=== PATIENT | female | born 1955 | race Two or more races ===

== ENCOUNTER 2023-02-22 12:12 | Observation (INO) | payer OTHER, BC ==
[2023-02-22] MEDS ORDERED: CEFEPIME 2 GM VIAL ONE (12:37)
[2023-02-22] MEDS ORDERED: NA CHLORIDE 0.9% 100 ML ONE (12:37)
[2023-02-22] MEDS ORDERED: NA CHLORIDE 0.9% 1,000 ML ONE ×2 (12:37→15:19)
[2023-02-22 12:49] LABS: Absolute Lymphocytes (CBC) 2.3 K/uL (0.7-4.9); Hematocrit 36.1 % (36.0-45.0); Lymphocytes % 34.8 % (15.3-44.8); MCV 92.9 fL (80-100); MPV 7.1 fL (7.6-11.3); RBC Red Blood Cell Count 3.89 M/uL (3.86-4.86)
[2023-02-22 12:55] LABS: Protime INR 0.87
[2023-02-22 13:09] LABS: Albumin 3.2 g/dL (3.4-5.0); Bilirubin Total 0.2 mg/dL (0.2-1.0); Magnesium 2.2 mg/dL (1.6-2.4); Potassium 3.1 mEq/L (3.5-5.1); Protein, Total 6.5 g/dL (6.4-8.2); Troponin High Sensitivity 8.5 pg/mL (<58.9)
--- NOTE | 2023-02-22 13:43 | RAD REPORT ---
EXAM DESCRIPTION: RAD - Chest Single View - 02/22/2023 1:30 pm CLINICAL HISTORY: hypotension COMPARISON: No comparisons FINDINGS: Lines: None. Lungs: No evidence of edema or pneumonia. Pleural: No significant pleural effusions or pneumothorax. Cardiac: Mild cardiomegaly. Mediastinum: Within normal limits. Bones: No acute fractures. Other: None IMPRESSION: No acute cardiopulmonary disease.
--- NOTE | 2023-02-22 14:28 | RAD REPORT ---
EXAM DESCRIPTION: CTAbdomen Pelvis W Contrast - 02/22/2023 2:02 pm CLINICAL HISTORY: vomiting COMPARISON: No comparisons TECHNIQUE: CT of the abdomen and pelvis was performed. All CT scans are performed using dose optimization technique as appropriate and may include automated exposure control or mA/KV adjustment according to patient size. FINDINGS: Lower chest: Mild coronary artery calcifications . Liver: Hepatic steatosis. Low-density lesion left hepatic lobe is likely benign. Biliary: No biliary ductal dilatation. Stomach: No significant focal abnormality. Duodenum: No significant focal abnormality. Pancreas: No significant abnormality. Spleen: No significant abnormality. Adrenal: No suspicious lesions. Kidney/ureter: No hydronephrosis. No renal calculi. Too small to characterize and/or benign appearing renal lesions are noted. Retroperitoneum: No retroperitoneal adenopathy. Vascular: No aneurysm. Atherosclerosis . Bowel: No significant focal abnormality. Peritoneum: No ascites or free air. Bladder: Grossly unremarkable. Reproductive: No adnexal masses. Bones: No acute fracture. L4-5 fusion Other: n/a IMPRESSION: No acute intra-abdominal or pelvic finding. Incidental findings above.
[2023-02-22] MEDS ORDERED: KCL 20 MEQ/100 mL IVPB 200 ML IV ONE (14:35)
--- NOTE | 2023-02-22 15:39 | ER ---
Nurse's Notes [facility] Name: Cade Perez Age: 67 yrs Sex: Female : 1955 Arrival Date: 02/22/2023 Time: 12:12 Bed 6 Private MD: Diagnosis: Hypotension, unspecified;Lactic acidosis Presentation: 02/22 12:20 Chief complaint: EMS states: they were called out for blurry vision. upon EMS arrival ap3 the patients blood pressure was 60/29. Coronavirus screen: At this time, the client does not indicate any symptoms associated with coronavirus-19. Ebola Screen: No symptoms or risks identified at this time. Initial Sepsis Screen: Does the patient meet any 2 criteria? Systolic BP < 90 mmHg. Mean Arterial Pressure (MAP) < 65. Does the patient have a suspected source of infection? No. Patient's initial sepsis screen is negative. Risk Assessment: Do you want to hurt yourself or someone else? Patient reports no desire to harm self or others. Onset of symptoms was February 22, 2023. 12:20 Method Of Arrival: EMS: [facility] ap3 12:20 Acuity: BRET 2 ap3 12:23 Care prior to arrival: Medication(s) given: Normal saline infusion, 1000 mL, IV ap3 initiated. 20 GA, in the left antecubital area. Historical: - Allergies: 12:21 No Known Allergies; ap3 - Home Meds: 12:21 losartan 100 mg oral tablet [Active]; atorvastatin 20 mg oral tablet [Active]; ap3 omeprazole 40 mg Oral capsule,delayed release (e.c.) [Active]; simvastatin 20 mg Oral tablet [Active]; - PMHx: 12:21 Hypertensive disorder; ap3 - Immunization history:: Client reports receiving the 2nd dose of the Covid vaccine. - Social history:: Smoking status: Patient denies any tobacco usage or history of. - Family history:: not pertinent. Screenin:23 Abuse screen: Denies threats or abuse. Nutritional screening: No deficits noted. ap3 Tuberculosis screening: No symptoms or risk factors identified. Assessment: 12:22 General: Appears in no apparent distress. Behavior is calm, cooperative. Pain: Denies ap3 pain. Neuro: Level of Consciousness is awake, alert, obeys commands, Oriented to person, place, time, situation, Speech is normal. Neuro: Reports blurred vision. Cardiovascular: Patient's skin is warm and dry. Respiratory: Airway is patent Respiratory effort is even, unlabored, Respiratory pattern is regular, symmetrical. 15:30 General: nurse attempted to place purewick on patient. patient was unable to urinate ap3 laying in the bed. patient sat up in bed and urinated in brief. . 16:28 Reassessment: Patient and/or family updated on plan of care and expected duration. Pain ap3 level reassessed. Patient is alert, oriented x 3, equal unlabored respirations, skin warm/dry/pink. Patient states feeling better. Patient states symptoms have improved. 16:29 General: patient was able to successfully wean from oxygen. patient is now 99% SPO2 on ap3 room air. 17:01 Reassessment: patient reports to admitting physician she wants to leave against medical ap3 advice. admitting physician educated patient on importance of staying. 17:04 Reassessment: Patient is alert, oriented x 3, equal unlabored respirations, skin aa5 warm/dry/pink. Wet brief noted, applied clean brief. . 19:02 Reassessment: report given to Radha RN and Jose RN. lg3 19:08 Reassessment:. General: Appears in no apparent distress. comfortable, Behavior is calm, lg3 cooperative. Pain: Denies pain. Neuro: No deficits noted. Hale Agitation-Sedation Scale (RASS): 0 - Alert and Calm Level of Consciousness is awake, alert, obeys commands, Oriented to person, place, time, situation. Cardiovascular: No deficits noted. Denies chest pain, shortness of breath, Capillary refill < 3 seconds Clubbing of nail beds is absent JVD is absent Patient's skin is warm and dry. Respiratory: No deficits noted. Airway is patent Respiratory effort is even, unlabored, Respiratory pattern is regular, symmetrical. GI: No deficits noted. No signs and/or symptoms were reported involving the gastrointestinal system. : No deficits noted. No signs and/or symptoms were reported regarding the genitourinary system. EENT: No deficits noted. No signs and/or symptoms were reported regarding the EENT system. Derm: No deficits noted. No signs and/or symptoms reported regarding the dermatologic system. Skin is intact, is healthy with good turgor, Skin is dry, Skin is normal, Skin temperature is warm. Musculoskeletal: No deficits noted. No signs and/or symptoms reported regarding the musculoskeletal system. Circulation, motion, and sensation intact. Range of motion: intact in all extremities. 19:31 General: pt states she is feeling much better and will be leaving. Provider notified . lg3 Vital Signs: 12:20 BP 74 / 48; Pulse 60; Resp 19; Temp 97.5; Pulse Ox 88% on R/A; Weight 68.5 kg; ap3 12:22 BP 82 / 58; Pulse 64; Pulse Ox 91% on 3 lpm NC; ap3 12:54 BP 91 / 59; Pulse 66; Resp 19; Pulse Ox 95% on 3 lpm NC; ap3 13:28 BP 94 / 59; Pulse 69; Pulse Ox 92% on 3 lpm NC; ap3 13:45 BP 94 / 67; Pulse 72; Pulse Ox 96% on 3 lpm NC; ap3 15:18 BP 109 / 78; Pulse 102; Pulse Ox 98% on 3 lpm NC; ap3 16:28 BP 99 / 66; Pulse 82; Pulse Ox 99% on R/A; ap3 17:43 BP 132 / 68; Pulse 80; Pulse Ox 98% on R/A; ap3 19:31 BP 139 / 88; Pulse 78; Resp 17 S; Pulse Ox 99% on R/A; lg3 ED Course: 12:16 Patient arrived in ED. iw 12:16 Compa Hernandes MD is Attending Physician. rt 12:18 First set of blood cultures drawn. ap3 12:19 Michelle Grullon, RN is Primary Nurse. ap3 12:21 Triage completed. ap3 12:24 Arm band placed on right wrist. ap3 12:24 Patient has correct armband on for positive identification. Bed in low position. Call ap3 light in reach. Side rails up X2. cafeteria monitor on. Pulse ox on. NIBP on. 12:43 EKG done, by ED staff, reviewed by Compa Hernandes MD. aa5 12:45 Inserted saline lock: 22 gauge in right antecubital area, using aseptic technique. ap3 Blood collected. 12:52 Second set of blood cultures drawn by ct. ap3 12:53 Michelle Grullon, RN is Primary Nurse. ap3 13:32 Chest Single View XRAY In Process Unspecified. EDMS 14:04 CT Abd/Pelvis - IV Contrast Only In Process Unspecified. EDMS 15:37 Poonam Collins MD is Hospitalizing Provider. rt 16:00 Admitting physician to see patient. ap3 19:00 Report received from Michelle Coelho RN. lg3 19:33 No provider procedures requiring assistance completed. IV discontinued, intact, lg3 bleeding controlled, No redness/swelling at site. Pressure dressing applied. Administered Medications: 12:55 Drug: NS 0.9% IV (30 ml/kg) 30 ml/kg Route: IV; Rate: bolus; Site: right antecubital; ap3 16:27 Follow up: IV Status: Completed infusion ap3 12:55 Drug: Cefepime IVPB 2 grams Route: IVPB; Rate: 200 ml/hr; Infused Over: 30 mins; Site: ap3 right antecubital; 13:27 Follow up: IV Status: Completed infusion ap3 14:36 Drug: Potassium Chloride IV 40 mEq Route: IV; Rate: calculated rate; Site: right ap3 antecubital; Medication: 12:54 VIS not applicable for this client. ap3 Outcome: 15:38 Decision to Hospitalize by Provider. rt 19:33 AMA AMA form signed lg3 19:33 Condition: stable 19:34 Patient left the ED. lg3 Signatures: Dispatcher [employer] EDCorrina Huff RN RN iw Calderon, Audri, RN RN aa5 Michelle Grullon RN RN ap3 Radha Culp RN RN lg3 Compa Hernandes MD MD rt Corrections: (The following items were deleted from the chart) 19:31 19:13 Reassessment: report given to CHERRY Garcia and CHERRY Garcia ap3 lg3
--- NOTE | 2023-02-22 15:39 | EDPHYS ---
Physician Documentation [facility] Name: Cade Perez Age: 67 yrs Sex: Female : 1955 Arrival Date: 02/22/2023 Time: 12:12 Bed 6 Private MD: ED Physician Compa Hernandes HPI: 02/22 13:06 This 67 yrs old [place] Female presents to ER via EMS with complaints of Blood rt Pressure Problem. 13:06 Patient presents to the ED with blurred vision, near syncope, nausea with vomiting as rt well as hypotension. Patient was well last night. Blood pressure was 60/30 by EMS. They started IV fluids with improvement of symptoms. Patient states that her symptoms have resolved despite still being hypotensive. Denies other acute complaints at this time, symptoms are severe in severity, no other aggravating or alleviating factors.. Historical: - Allergies: 12:21 No Known Allergies; ap3 - Home Meds: 12:21 losartan 100 mg oral tablet [Active]; atorvastatin 20 mg oral tablet [Active]; ap3 omeprazole 40 mg Oral capsule,delayed release (e.c.) [Active]; simvastatin 20 mg Oral tablet [Active]; - PMHx: 12:21 Hypertensive disorder; ap3 - Immunization history:: Client reports receiving the 2nd dose of the Covid vaccine. - Social history:: Smoking status: Patient denies any tobacco usage or history of. - Family history:: not pertinent. ROS: 13:06 Constitutional: Negative for fever, chills, and weight loss, Cardiovascular: Negative rt for chest pain, palpitations, and edema, Respiratory: Negative for shortness of breath, cough, wheezing, and pleuritic chest pain, MS/Extremity: Negative for injury and deformity, Skin: Negative for injury, rash, and discoloration, Psych: Negative for depression, anxiety, suicide ideation, homicidal ideation, and hallucinations. 13:06 Eyes: Positive for blurry vision, Negative for pain. 13:06 Abdomen/GI: Positive for nausea and vomiting, Negative for abdominal pain. 13:06 Neuro: Positive for near syncope, weakness. Exam: 13:06 Constitutional: This is a well developed, well nourished patient who is awake, alert, rt and in no acute distress. Head/Face: Normocephalic, atraumatic. Chest/axilla: Normal chest wall appearance and motion. Nontender with no deformity. No lesions are appreciated. Cardiovascular: Regular rate and rhythm with a normal S1 and S2. No gallops, murmurs, or rubs. Normal PMI, no JVD. No pulse deficits. Respiratory: Lungs have equal breath sounds bilaterally, clear to auscultation and percussion. No rales, rhonchi or wheezes noted. No increased work of breathing, no retractions or nasal flaring. Abdomen/GI: Soft, non-tender, with normal bowel sounds. No distension or tympany. No guarding or rebound. No evidence of tenderness throughout. Skin: Warm, dry with normal turgor. Normal color with no rashes, no lesions, and no evidence of cellulitis. MS/ Extremity: Pulses equal, no cyanosis. Neurovascular intact. Full, normal range of motion. Neuro: Awake and alert, GCS 15, oriented to person, place, time, and situation. Cranial nerves II-XII grossly intact. Motor strength 5/5 in all extremities. Sensory grossly intact. Cerebellar exam normal. Normal gait. Psych: Awake, alert, with orientation to person, place and time. Behavior, mood, and affect are within normal limits. 13:06 ECG was reviewed by the Attending Physician. Vital Signs: 12:20 BP 74 / 48; Pulse 60; Resp 19; Temp 97.5; Pulse Ox 88% on R/A; Weight 68.5 kg; ap3 12:22 BP 82 / 58; Pulse 64; Pulse Ox 91% on 3 lpm NC; ap3 12:54 BP 91 / 59; Pulse 66; Resp 19; Pulse Ox 95% on 3 lpm NC; ap3 13:28 BP 94 / 59; Pulse 69; Pulse Ox 92% on 3 lpm NC; ap3 13:45 BP 94 / 67; Pulse 72; Pulse Ox 96% on 3 lpm NC; ap3 15:18 BP 109 / 78; Pulse 102; Pulse Ox 98% on 3 lpm NC; ap3 16:28 BP 99 / 66; Pulse 82; Pulse Ox 99% on R/A; ap3 17:43 BP 132 / 68; Pulse 80; Pulse Ox 98% on R/A; ap3 19:31 BP 139 / 88; Pulse 78; Resp 17 S; Pulse Ox 99% on R/A; lg3 MDM: 12:19 Patient medically screened. rt 17:14 Differential Diagnosis Sepsis, hypotension, volume depletion, cardiogenic shock. Data rt reviewed: vital signs, nurses notes, lab test result(s), EKG, radiologic studies. Consideration of Admission/Observation Patient was admitted/placed on observation. Management of patient was discussed with the following: Hospitalist: Agrees to admit. I considered the following discharge prescriptions or medication management in the emergency department Medications were administered in the Emergency Department. See MAR. Care significantly affected by the following chronic conditions: Hypertension. Counseling: I had a detailed discussion with the patient and/or guardian regarding: the historical points, exam findings, and any diagnostic results supporting the discharge/admit diagnosis, lab results, radiology results, the need for further work-up and treatment in the hospital. Response to treatment: the patient's symptoms have markedly improved after treatment. 02/22 12:23 Order name: Blood Culture Adult (2) rt 02/22 12:23 Order name: CBC with Diff; Complete Time: 13:05 rt 02/22 12:23 Order name: CMP; Complete Time: 13:22 rt 02/22 12:23 Order name: Lactate w/ 2H reflex if indic.; Complete Time: 13:22 rt 02/22 12:23 Order name: Protime (+inr); Complete Time: 13:05 rt 02/22 12:23 Order name: Ptt, Activated; Complete Time: 13:05 rt 02/22 12:23 Order name: Urinalysis w/ reflexes rt 02/22 12:23 Order name: Magnesium; Complete Time: 13:22 rt 02/22 12:23 Order name: NT PRO-BNP; Complete Time: 13:22 rt 02/22 12:23 Order name: Troponin HS; Complete Time: 13:22 rt 02/22 18:19 Order name: CBC with Automated Diff EDMS 02/22 18:19 Order name: CBC with Automated Diff EDMS 02/22 18:19 Order name: Comprehensive Metabolic Panel EDMS 02/22 18:19 Order name: Comprehensive Metabolic Panel EDMN 02/22 18:20 Order name: Cortisol EDMS 02/22 18:20 Order name: Lactate w/ 2H reflex if indic. EDMS 02/22 18:20 Order name: Lipid Profile EDMN 02/22 18:20 Order name: Magnesium EDMS 02/22 18:20 Order name: Procalcitonin [facility] 02/22 18:20 Order name: T4 Free [facility] 02/22 18:20 Order name: Thyroid Stimulating Hormone [facility] 02/22 19:24 Order name: Lactate Sepsis 2 HR Follow-up [facility] 02/22 12:23 Order name: Chest Single View XRAY; Complete Time: 13:52 rt 02/22 12:23 Order name: CT Abd/Pelvis - IV Contrast Only; Complete Time: 14:33 rt 02/22 12:23 Order name: EKG; Complete Time: 12:23 rt 02/22 18:19 Order name: Regular [facility] 02/22 12:23 Order name: Accucheck; Complete Time: 12:55 rt 02/22 12:23 Order name: Cardiac monitoring; Complete Time: 12:24 rt 02/22 12:23 Order name: EKG - Nurse/Tech; Complete Time: 12:45 rt 02/22 12:23 Order name: IV Saline Lock - Large Bore; Complete Time: 12:24 rt 02/22 12:23 Order name: Labs collected and sent; Complete Time: 12:45 rt 02/22 12:23 Order name: O2 Per Protocol; Complete Time: 12:24 rt 02/22 12:23 Order name: O2 Sat Monitoring; Complete Time: 12:24 rt 02/22 12:23 Order name: Vital Signs; Complete Time: 12:24 rt 02/22 12:23 Order name: IV Saline Lock; Complete Time: 12:24 rt EC:06 Rate is 68 beats/min. Rhythm is regular, Normal Sinus Rhythm with No ectopy. QRS Superior rt is Normal. TN interval is normal. QRS interval is normal. QT interval is normal. No Q waves. Clinical impression: NSR w/ Non-specific ST/T Changes. Interpreted by me. Administered Medications: 12:55 Drug: NS 0.9% IV (30 ml/kg) 30 ml/kg Route: IV; Rate: bolus; Site: right antecubital; ap3 16:27 Follow up: IV Status: Completed infusion ap3 12:55 Drug: Cefepime IVPB 2 grams Route: IVPB; Rate: 200 ml/hr; Infused Over: 30 mins; Site: ap3 right antecubital; 13:27 Follow up: IV Status: Completed infusion ap3 14:36 Drug: Potassium Chloride IV 40 mEq Route: IV; Rate: calculated rate; Site: right ap3 antecubital; Disposition Summary: 02/22/23 15:38 Hospitalization Ordered Hospitalization Status: Observation rt Provider: Poonam Collins rt Location: Telemetry/MedSurg (observation) rt Condition: Fair rt Problem: new rt Symptoms: have improved rt Bed/Room Type: Standard rt Room Assignment: rt Diagnosis - Hypotension, unspecified rt - Lactic acidosis rt Forms: - Medication Reconciliation Form rt - SBAR form rt Critical care time excluding procedures: 17:14 Critical care time: Bedside Care: 30 minutes, Consultation: 5 minutes. Total time: 35 rt minutes Signatures: Dispatcher [employer] Michelle Acosta RN RN ap3 Compa Hernandse MD MD rt
[2023-02-22] MEDS ORDERED: ACETAMINOPHEN 500 MG TAB PO PRN (18:15)
[2023-02-22] MEDS ORDERED: ONDANSETRON 4 MG/2 ML VIAL IV PRN (18:15)
[2023-02-22 18:23] VITALS: TEMP 98
--- NOTE | 2023-02-22 18:23 | P.HP ---
Certification for Inpatient Patient admitted to: Observation With expected LOS: <2 Midnights Patient will require the following post-hospital care: None Practitioner: I am a practitioner with admitting privileges, knowledge of patient current condition, hospital course, and medical plan of care. Services: Services provided to patient in accordance with Admission requirements found in Title 42 Section 412.3 of the Code of Federal Regulations Patient History Date of Service: 02/22/23 Reason for admission: Transient hypotension History of Present Illness: Patient is a 67-year-old female who presented to the emergency room with nausea and vomiting and hypotension. Patient takes losartan at home. She woke up and was not feeling well. She has some nausea and vomiting and then she became lightheaded. According to her her blood pressure was running 60s over 30s after she vomited. EMS was called and they brought her into the emergency room. By the time she got here her blood pressure was 110/70. However, she did have some mild orthostasis. Her lactic acid is elevated. I had a long conversation with the patient and her and they want to go home. Medically patient is not stable for discharge so if they want to go home he will have to leave AGAINST MEDICAL ADVICE. I do want to hydrate her and monitor her overnight and repeat the lactic acid level. If labs come back looking good she should be able to discharge in the morning. However, she may decide to leave AGAINST MEDICAL ADVICE later this evening. - Past Medical/Surgical History -: HTN -: Hyperlipidemia -: GERD Past Surgical History: Patient denies surgical history - Family History Father Family History: Reviewed- Non-Contributory - Social History Smoking Status: Never smoker Alcohol use: No CD- Drugs: No Review of Systems 10-point ROS is otherwise unremarkable Physical Examination - Vital Signs Temperature: 98 F Blood Pressure: 110/70 Pulse: 90 Respirations: 18 Pulse Ox (%): 95 - Physical Exam General: Alert, In no apparent distress, Oriented x3 HEENT: Atraumatic, PERRLA, Mucous membr. moist/pink, EOMI, Sclerae nonicteric Neck: Supple, 2+ carotid pulse no bruit, No LAD, Without JVD or thyroid abnormality Respiratory: Clear to auscultation bilaterally, Normal air movement Cardiovascular: Regular rate/rhythm, Normal S1 S2 Gastrointestinal: Normal bowel sounds, Soft and benign, Non-distended, No tenderness, No rebound, No guarding Musculoskeletal: No clubbing, No swelling, No tenderness Integumentary: No rashes Neurological: Normal gait, Normal speech, Normal strength at 5/5 x4 extr, Normal tone, Sensation intact, Cranial nerves 3-12 intact, Normal affect Lymphatics: No axilla or inguinal lymphadenopathy - Studies Laboratory Data (last 24 hrs) 02/22/23 02/22/23 02/22/23 12:38 12:38 12:38 WBC 6.60 Hgb 11.6 L Hct 36.1 Plt Count 301 PT 9.6 INR 0.87 APTT 29.8 Sodium 142 Potassium 3.1 L BUN 14 Creatinine 1.00 Glucose 103 Magnesium 2.2 Total Bilirubin 0.2 AST 30 ALT 44 Alkaline Phosphatase 53 Assessment & Plan - Problems (Diagnosis) (1) Hypotension Current Visit: Yes Status: Acute (2) History of hypertension Current Visit: Yes Status: Acute (3) Hyperlipidemia Current Visit: Yes Status: Acute (4) GERD (gastroesophageal reflux disease) Current Visit: Yes Status: Acute - Plan Plan: 1. IV fluids 2. Monitor hemodynamics closely 3. Check thyroid and cortisol levels 4. Medication for nausea and vomiting 5. GI DVT prophylaxis Discharge Plan: Home Plan to discharge in: 24 Hours - Advance Directives Does patient have a Living Will: No Does patient have a Durable POA for Healthcare: No - Code Status/Comfort Care Code Status Assessed: Yes Code Status: Full Code Critical Care: No Time Spent Managing PTS Care (In Minutes): 45
--- NOTE | 2023-02-22 18:48 | EKG ---
Test Date: 2023-02-22 Test Time: 12:40:27 Special Diet Cook: CON MEASUREMENT RESULTS: Intervals: Rate: 66 TX: 194 QRSD: 94 QT: 406 QTc: 425 [place]: P: 51 TX: 194 QRS: 57 T: 53 INTERPRETIVE STATEMENTS: Normal sinus rhythm Nonspecific T wave abnormality Abnormal ECG Compared to ECG 03/08/1996 11:32:00 T-wave abnormality now present Sinus arrhythmia no longer present Electronically Signed On 02-22-23 18:47:35 CDT by Brian Lee
[2023-02-22] MEDS ORDERED: NA CHLORIDE 0.9% 1,000 ML IV SCH (19:00)
[2023-02-22 20:59] VITALS: BP 139/88; O2SAT 99
== END 2023-02-22 19:23 | disposition left against medical advice (07) ==
LOC: ER 12:12 → ERHOLD 18:15
PROVIDERS: ADMIT Hospitalist; ATTEND Hospitalist
DX: I95.9 Hypotension, unspecified (principal); R11.2 Nausea with vomiting, unspecified; E78.5 Hyperlipidemia, unspecified; K21.9 Gastro-esophageal reflux disease without esophagitis
CPT/HCPCS: 93005; 87040 ×2; 85025; 36415; 83735; 85610; 83605 ×2; 85730; 84484; 80053; 83880; 74177; 71045; Q9967; J3480; J0692; J7030 ×2

== ENCOUNTER 2024-07-29 08:51 | Emergency (ER) | payer OTHER, BC ==
--- OUTSIDE RECORDS SUMMARY | 2024-07-29 08:57 | XMS REPORT | Continuity of Care Document ---
Author Name Unknown Address [address] [facility] [address] [place] [address] [facility] Address [address] [facility] [place] [address] Care Team Providers Care Distribution Systems Serviceperson Name Role Phone FOUND, PCP NOT Primary Care Physician Unavailab CLIFF Rosario Attending Clinician UnavailCLIFF Garrison Attending Clinician UnavailLITA Ortiz Attending Clinician Unavailable ADRIAN MUÑOZ Attending Clinician Un available Cliff Bey MD Attending Clinician [phone] Doctor Unassigned, [place] Attending Clinician U navailable [email or web address] Attending Clinician Unavailramez Baca RN, Myra Attending Clinician Unavailable KEEGAN SINGLETON Attending Clinician Unavailable Noemy Ureña MD Attending Clinician [phone] Vonnie Johnson DO Attending Clinician [phone] Keegan Singleton MD Attending Clinician [phone] [email or web address] Admitting Clinician VONNIE Souza Admitting Clinician Vonnie Dillard DO Admitting Clinician Payers Payer Name Policy Type Policy Number Effective Date Expirati on Date Source [place] [id number] 2019 00:00:00 [place] [id number] 2020 00:00:00 Problems Condition Name Condition Details Condition Category Status Onset Date Resolution Date Last Treatment Date Treating Clinician Comments Source Hip fracture, right, closed, initial encounter Hip fracture, right, closed, initial encounter Disease Active 09-19 00:00: 00 [facility] Allergies, Adverse Reactions, Alerts Allergy Name Allergy Type Status Severity Reaction(s) Onset Date Inactive Date Treating Clinician Comments Source NO KNOWN ALLERGIE S Drug Class Active [facility] Social History Social Habit Start Date Stop Date Quantity Comments Source Sexual orientation U [facility] History of Social function 2023-10-06 00:00:00 2023-10-06 00:00:00 [facility] Tobacco use and exposure 2023-09-19 00:00:00 2023-09-19 00:00:00 Smokeless tobacco non-user [facility] Sex Assigned At 1955 00:00:00 1955 00:00:00 Female [facility] Smoking Status Start Date Stop Date Source Unknown if ever smoked JEREMÍAS [facility] Never smoked tobacco [facility] Medications Ordered Medication Name Filled Medication Name Start Date Stop Date Current Medication? Ordering Clinician Indication Dosage Frequency Signature (SIG) Comments Components Source traMADoL 50 mg tablet 10-20 00:00: 00 10-28 04:59 :00 No 4647 50mg Take 1 tablet by mouth every 6 (six) hours as needed for Pain (scale 4-6) for up to 7 days. Indication s: acute pain [facility] traMADoL 50 mg tablet 10-05 00:00: 00 10-13 04:59 :00 No 4647 50mg Take 1 tablet by mouth every 6 (six) hours as needed for Pain (scale 4-6) for up to 7 days. Indication s: acute pain [facility] atorvastati n 40 mg tablet 09-22 15:32: 02 Yes 40mg Take 1 tablet by mouth at bedtime. [facility] ezetimibe 10 mg tablet 09-22 15:32: 02 Yes 10mg Take 1 tablet by mouth in the morning. [facility] ibandronate 150 mg tablet 09-22 15:32: 02 Yes 150mg Take 1 tablet by mouth once every month. [facility] gabapentin ER 600 mg tablet, extended release 24 hr 09-22 15:32: 02 Yes 600mg Take 1 tablet by mouth in the morning and 1 tablet in the evening. [facility] icosapent ethyL (VASCEPA) 1 gram capsule 09-22 15:32: 02 Yes 2g Take 2 capsules by mouth in the morning and 2 capsules in the evening. [facility] losartan potassium (LOSARTAN ORAL) 09-22 15:31: 59 09-22 00:00 :00 No 100mg Take 100 mg by mouth in the morning. [facility] rivaroxaban (XARELTO) 10 mg tablet 09-22 00:00: 00 10-20 04:59 :00 No 1475 10mg Take 1 tablet by mouth in the morning for 28 days. Indication s: DVT prevention [facility] oxyCODONE-a cetaminophe n 5-325 mg per tablet 09-22 00:00: 00 09-29 05:59 :00 No 4647 1{tbl} Take 1 tablet by mouth every 6 (six) hours as needed for Pain (scale 7-10) or Pain (scale 4-6) for up to 7 days. Indication s: acute pain [facility] HYDROcodone -acetaminop hen (NORCO 5) 5-325 mg tablet 1 tablet 09-21 17:08: 45 Yes 1{tbl} 1 tablet, Oral, Q6HPRN, Starting on Wed09/21/23 at 1108, Until Discontinu ed, Routine, Pain (scale 4-6) [facility] NaCl 0.9% (NS) bolus infusion 1,000 mL 09-21 15:15: 00 09-21 14:56 :03 No 1000mL at 999 mL/hr, 1,000 mL, IV Infusion, ONCE, 1 dose, On Wed09/21/23 at 0915, STAT [facility] ezetimibe (ZETIA) tablet 10 mg 09-21 15:00: 00 Yes 10mg 10 mg, Oral, DAILY, First dose on Wed09/21/23 at 0900, Until Discontinu ed, Routine [facility] enoxaparin (LOVENOX) injection 30 mg 09-21 14:00: 00 10-18 12:59 :00 No 30mg 30 mg, Subcutaneo us, Q12H, 56 doses, First dose on Wed09/21/23 at 0800, Last dose on Wed10/18/23 at 2000, Routine [facility] atorvastati n (LIPITOR) tablet 40 mg 09-21 03:00: 00 Yes 40mg 40 mg, Oral, QHS, First dose on Wed09/20/23 at 2100, Until Discontinu ed, Routine [facility] gabapentin (NEURONTIN) capsule 300 mg 09-21 02:00: 00 Yes 300mg 300 mg, Oral, TID, First dose on Wed09/20/23 at 2000, Until Discontinu ed [facility] morpHINE (2 mg/mL) injection 2 mg 09-20 23:16: 30 Yes 2mg 2 mg, Slow IV Push, Q4HPRN, Starting on Wed09/20/23 at 1716, Until Discontinu ed, Routine, For pain unrelieved by oral medication s, or if patient is unable to tolerate oral pain medication . [facility] lactated ringers IV infusion 1,000 mL 09-20 22:45: 00 09-20 23:18 :57 No 1000mL at 75 mL/hr, 1,000 mL, IV Infusion, CONTINUOUS , Starting on Wed09/20/23 at 1645, Until Wed09/20/23 at 1718, Routine, PACU [facility] FENTanyl PF (SUBLIMAZE (PF)) injection 25 mcg 09-20 22:30: 31 09-20 23:16 :36 No 25ug 25 mcg, Slow IV Push, Q5MIN PRN, 4 doses, Starting on Wed09/20/23 at 1630, Until Wed09/20/23 at 1716, Routine, Pain (scale 4-6), PACU [facility] sodium chloride 0.9 % irrigation solution 09-20 21:14: 00 09-20 23:18 :57 No PRN, Starting on Wed09/20/23 at 1514, Until Wed09/20/23 at 1718, Intra-op [facility] losartan potassium (LOSARTAN ORAL) 09-20 17:20: 11 Yes 100mg Take 100 mg by mouth in the morning. [facility] atorvastati n 40 mg tablet 09-20 17:20: 11 Yes 40mg Take 1 tablet by mouth at bedtime. [facility] ezetimibe 10 mg tablet 09-20 17:20: 11 Yes 10mg Take 1 tablet by mouth in the morning. [facility] ibandronate 150 mg tablet 09-20 17:20: 11 Yes 150mg Take 1 tablet by mouth once every month. [facility] gabapentin ER 600 mg tablet, extended release 24 hr 09-20 17:20: 11 Yes 600mg Take 1 tablet by mouth in the morning and 1 tablet in the evening. [facility] icosapent ethyL (VASCEPA) 1 gram capsule 09-20 17:20: 11 Yes 2g Take 2 capsules by mouth in the morning and 2 capsules in the evening. [facility] losartan (COZAAR) tablet 50 mg 09-20 16:15: 00 09-20 15:24 :00 No 50mg 50 mg, Oral, ONCE, 1 dose, On Wed09/20/23 at 1015, Routine [facility] D5W 0.9% NaCl (NS) IV infusion 1,000 mL 09-20 15:45: 00 09-21 17:09 :17 No 1000mL at 75 mL/hr, 1,000 mL, IV Infusion, CONTINUOUS , Starting on Wed09/20/23 at 0945, Until Wed09/21/23 at 1109, Routine [facility] morpHINE (4 mg/mL) injection 4 mg 09-20 06:05: 44 Yes 4mg 4 mg, Slow IV Push, Q4HPRN, 3 doses, Starting on Wed09/20/23 at 0005, Until Discontinu ed, Routine, Pain (scale 7-10), max 3 doses [facility] HYDROcodone -acetaminop hen (NORCO 5) 5-325 mg tablet 2 tablet 09-20 04:30: 34 09-21 17:08 :56 No 2{tbl} 2 tablet, Oral, Q6HPRN, Starting on Wed09/19/23 at 2230, Until Wed09/21/23 at 1108, Routine, Pain (scale 4-6) [facility] KCL (KLOR-CON M20) tablet 40 mEq 09-20 04:15: 00 09-20 16:14 :00 No 40meq 40 mEq, Oral, Q4H ABX, 3 doses, First dose on Wed09/19/23 at 2215, Last dose on Wed09/20/23 at 0615, Routine [facility] acetaminoph en (TYLENOL) tablet 1,000 mg 09-20 00:13: 41 Yes 1000mg 1,000 mg, Oral, Q6HPRN, Starting on Wed09/19/23 at 1813, Until Discontinu ed, Routine, Pain (scale 1-3) [facility] HYDROcodone -acetaminop hen (NORCO 5) 5-325 mg tablet 1 tablet 09-20 00:13: 33 09-20 04:31 :10 No 1{tbl} 1 tablet, Oral, Q6HPRN, Starting on 09/19/23 at 1813, Until 09/19/23 at 2231, Routine, Pain (scale 4-6) [facility] morpHINE (4 mg/mL) injection 4 mg 09-19 22:33: 06 09-20 04:40 :00 No 4mg 4 mg, Slow IV Push, Q30MIN PRN, 3 doses, Starting on Wed09/19/23 at 1633, Until Discontinu ed, Routine, Pain (scale 7-10), max 3 doses [facility] ondansetron (ZOFRAN (PF)) injection 4 mg 09-19 22:33: 06 09-19 23:26 :00 No 4mg 4 mg, Slow IV Push, PRN, 1 dose, Starting on 09/19/23 at 1633, Until Discontinu ed, Routine, Nausea and Vomiting (N/V) [facility] Immunizations Ordered Immunization Name Filled Immunization Name Date Status Comments Source SARS-COV-2 COVID-19 MODERNA 0.25ML BOOSTER VACCINE Unknown Completed [facility] SARS-COV-2 COVID-19 MODERNA 0.25ML BOOSTER VACCINE Unknown Completed [facility] SARS-COV-2 COVID-19 MODERNA 0.25ML BOOSTER VACCINE Unknown Completed [facility] SARS-COV-2 COVID-19 MODERNA 0.25ML BOOSTER VACCINE Unknown Completed [facility] SARS-COV-2 COVID-19 MODERNA 0.25ML BOOSTER VACCINE Unknown Completed [facility] SARS-COV-2 COVID-19 MODERNA 0.25ML BOOSTER VACCINE Unknown Completed [facility] SARS-COV-2 COVID-19 MODERNA 0.25ML BOOSTER VACCINE Unknown Completed [facility] SARS-COV-2 COVID-19 MODERNA 0.25ML BOOSTER VACCINE Unknown Completed [facility] SARS-COV-2 COVID-19 MODERNA 0.25ML BOOSTER VACCINE Unknown Completed [facility] SARS-COV-2 COVID-19 MODERNA 0.25ML BOOSTER VACCINE Unknown Completed [facility] SARS-COV-2 COVID-19 MODERNA 0.25ML BOOSTER VACCINE Unknown Completed [facility] SARS-COV-2 COVID-19 MODERNA 0.25ML BOOSTER VACCINE Unknown Completed [facility] SARS-COV-2 COVID-19 MODERNA 0.25ML BOOSTER VACCINE Unknown Completed [facility] Vital Signs Vital Name Observation Time Observation Value Comments S ource BP Diastolic 2024-03-25 03:12:00 77 mm[Hg] [facility] Body Temperature 2024-03-25 03:12:00 97.2 [degF] [facility] Heart Rate 2024-03-25 03:12:00 66 /min JEREMÍAS [facility] Respiratory rate 2024-03-25 03:12:00 10 /min [facility] BP Systolic 2024-03-25 03:12:00 159 mm[Hg[facility] Height 2024-03-24 21:57:00 157.342021 cm [place] Weight 2024-03-24 21:57:00 65.350979 kg [facility] BMI (Body Mass Index) 2024-03-24 21:57:00 26.5 kg/m2 [facility] Body height 2023-12-16 18:22:00 160 cm [facility] Body weight 2023-12-16 18:22:00 65 kg [facility] BMI 2023-12-16 18:22:00 25.38 kg/m2 [facility] Body height 2023-11-03 19:18:00 157.5 cm [facility] Body weight 2023-11-03 19:18:00 62.959 kg [facility] BMI 2023-11-03 19:18:00 25.39 kg/m2 [facility] Systolic blood pressure 2023-10-06 21:30:00 131 mm[Hg] [facility] Diastolic blood pressure 2023-10-06 21:30:00 82 mm[Hg] [facility] Heart rate 2023-10-06 21:30:00 67 /min [facility] Oxygen saturation in Arterial blood by Pulse oximetry 2023-10-06 21:30:00 92 /min [facility] Systolic blood pressure 2023-09-22 20:00:00 110 mm[Hg] [facility] Diastolic blood pressure 2023-09-22 20:00:00 62 mm[Hg] [facility] Heart rate 2023-09-22 20:00:00 82 /min [facility] Respiratory rate 2023-09-22 20:00:00 32 /min [facility] Oxygen saturation in Arterial blood by Pulse oximetry 2023-09-22 20:00:00 98 /min [facility] Body temperature 2023-09-22 18:15:00 37.5 Imelda [facility] Body weight 2023-09-20 10:00:00 70.489 kg [facility] BMI 2023-09-20 10:00:00 27.53 kg/m2 [facility] Body height 2023-09-20 03:13:00 160 cm [facility] Systolic blood pressure 2023-09-21 00:00:00 106 mm[Hg] [facility] Diastolic blood pressure 2023-09-21 00:00:00 72 mm[Hg] [facility] Heart rate 2023-09-21 00:00:00 86 /min [facility] Respiratory rate 2023-09-21 00:00:00 16 /min [facility] Oxygen saturation in Arterial blood by Pulse oximetry 2023-09-21 00:00:00 98 /min [facility] Body temperature 2023-09-20 23:17:00 37.28 Imelda [facility] Body weight 2023-09-20 10:00:00 70.489 kg [facility] BMI 2023-09-20 10:00:00 27.53 kg/m2 [facility] Body height 2023-09-20 03:13:00 160 cm [facility] Procedures Procedure Date / Time Performed Performing Clinician Source ECG (electrocardiogram) 2024-03-24 22:10:00 [facility] X-ray of chest, single view 2024-03-24 00:00:00 [facility] CONSENT TO CONTACT FOR VOLUNTARY RESEARCH 2023-10-06 20:25:24 Doctor Unassigned, [place] [facility] CONSENT/REFUSAL FOR DIAGNOSIS AND TREATMENT 2023-10-06 20:25:07 Doctor Unassigned, [place] [facility] ASSIGNMENT OF BENEFITS 2023-10-06 20:24:50 Docto r Unassigned, [place] [facility] URINALYSIS 2023-09-22 18:52:00 Keegan Singleton [facility] XR CHEST 1 VW 2023-09-22 18:16:[facility] BAS[facility]ABOLIC PANEL (NA, K, CL, CO2, GLUCOSE, BUN, CREATININE, CA) 2023-09-22 10:36:00 Keegan Singleton [facility] CBC WITHOUT DIFF 2023-09-22 10:36:00 [facility] 2023-09-21 14:56:00 Keegan Singleton Un iversity [facility] CBC WITHOUT DIFF 2023-09-21 14:56:00 [facility] 2023-09-21 10:37[facility] (NA, K, CL, CO2, GLUCOSE, BUN, CREATININE, CA) 2023-09-21 10:37:00 Keegan Singleton [facility] CBC WITH DIFF 2023-09-21 10:37:00 [facility]UM 2023-09-21 10:37:00 [facility] PANEL (NA, K, CL, CO2, GLUCOSE, BUN, CREATININE, CA) 2023-09-21 10:37:00 Keegan Singleton [facility] CBC WITH DIFF 2023-09-21 10:37:00 Keegan [facility] XR HIPS 2 VW BILATERAL 2023-09-20 23:51:16 Ghassan Bey [facility] XR HIPS 2 VW BILATERAL 2023-09-20 23:51:16 Ghassan Bey [facility] FL TIME OR (NON-REPORTABLE) 2023-09-20 23:00:00 Cliff Bey [facility] FEMUR INTRAMEDULLARY NAILING 2023-09-20 20:23:00 Cliff Bey [facility] FEMUR INTRAMEDULLARY NAILING 2023-09-20 20:23:00 Cliff Bey [facility] TRANSTHORACIC ECHO (TTE) COMPLETE 2023-09-20 14:01:00 Don [facility] TRANSTHORACIC ECHO (TTE) COMPLETE 2023-09-20 14:01:00 Don [facility] BASIC METABOLIC PANEL (NA, K, CL, CO2, GLUCOSE, BUN, CREATININE, CA) 2023-09-20 09:42:00 Don [facility] CBC WITHOUT DIFF 2023-09-20 09:42:00 Don [facility] PROTHROMBIN TIME / INR 2023-09-20 09:42:00 Radha Ochoa [facility] ACTIVATED PARTIAL THRMPLAS JENNIFER 2023-09-20 09:42:00 Don [facility] BASIC METABOLIC PANEL (NA, K, CL, CO2, GLUCOSE, BUN, CREATININE, CA) 2023-09-20 09:42:00 Don [facility] CBC WITHOUT DIFF 2023-09-20 09:42:00 Don [facility] PROTHROMBIN TIME / INR 2023-09-20 09:42:00 Radha Ochoa [facility] ACTIVATED PARTIAL THRMPLAS JENNIFER 2023-09-20 09:42:00 Don [facility] MRSA / MSSA SCREEN BY PCR, [facility] 2023-09-20 03:29:00 Vonnie Johnson [facility] MRSA / MSSA SCREEN BY PCR, [facility] 2023-09-20 03:29:00 Vonnie Johnson [facility] ABORH CONFIRMATION (LAB ONLY) 2023-09-20 00:19:00 Noemy Ureña [facility] ABORH CONFIRMATION (LAB ONLY) 2023-09-20 00:19:00 Noemy Ureña [facility] URINALYSIS 2023-09-19 23:42:00 Noemy [facility]ña [facility] URIN[facility]YSIS 2023-09-19 23:42:00 Noemy Ureña [facility] ASSIGNMENT OF BENEFITS 2023-09-19 23:13:54 Docto r Unassigned, [place] [facility] ASSIGNMENT OF BENEFITS 2023-09-19 23:13:54 Docto r Unassigned, [place] [facility] NOTICE OF PRIVACY PRACTICES 2023-09-19 23:13:17 Doctor Unassigned, [place] [facility] NOTICE OF PRIVACY PRACTICES 2023-09-19 23:13:17 Doctor Unassigned, [place] [facility] CONSENT/REFUSAL FOR DIAGNOSIS AND TREATMENT 2023-09-19 23:12:50 Doctor Unassigned, [place] [facility] CONSENT/REFUSAL FOR DIAGNOSIS AND TREATMENT 2023-09-19 23:12:50 Doctor Unassigned, [place] [facility] XR HIPS 2 VW RIGHT 2023-09-19 23:07:12 Niranjan [facility] XR CHEST 1 VW 2023-09-19 23:07:12 Niranjan [facility] XR HIPS 2 VW RIGHT 2023-09-19 23:07:12 Noemy Ureña [facility] XR CHEST 1 VW 2023-09-19 23:07:12 Noemy Ureña [facility] HB ECG ROUTINE & RHYTHM STRIP 2023-09-19 22:57:57 Noemy Ureña [facility] HB ECG ROUTINE & RHYTHM STRIP 2023-09-19 22:57:57 Noemy Ureña [facility] LACTIC ACID WHOLE BLOOD 2023-09-19 22:40:00 Do leon Ureña [facility] LACTIC ACID WHOLE BLOOD 2023-09-19 22:40:00 Do leon Ureña [facility] COMP. METABOLIC PANEL ([id number]) 2023-09-19 22:39:00 Noemy Ureña [facility] CBC WITH DIFF 2023-09-19 22:39:00 Noemy Ureña [facility] PROTHROMBIN TIME / INR 2023-09-19 22:39:00 Curtis Ureña [facility] HB ABO GROUPING 2023-09-19 22:39:00 [facility] 2023-09-19 22:39:00 Noemy Ureña [facility] COMP. METABOLIC PANEL ([id number]) 2023-09-19 22:39:00 Noemy Ureña [facility] CBC WITH DIFF 2023-09-19 22:39:00 Noemy Ureña [facility] PROTHROMBIN TIME / INR 2023-09-19 22:39:00 Curtis Ureña [facility] HB ABO GROUPING 2023-09-19 22:39:00 Noemy Ureña [facility] N-TERMINAL PRO-BNP 2023-09-19 22:39:00 Noemy Ureña [facility] EMERGENCY DEPARTMENT DOCUMENTS 2023-09-19 06:01:00 Doctor Unassigned, [place] [facility] Encounters Start Date/Time End Date/Time Encounter Type Admission Type Attending [facility] Care Facility Care Department Encounter ID Source 2024-03-24 21:55:00 2024-03-25 03:16:00 Departed Emergency Room [facility] [id number] [facility] [id number] [facility] 2024-03-24 21:55:00 2024-03-25 03:16:00 Emergency ER LITA RUBIN [facility] [id number] [facility] 2023-12-16 13:30:54 2023-12-16 23:59:00 Hospital Encounter Cliff Bey [facility] MEDICAL OFFICE [facility] [id number] 350.1.13.10 [id number] [id number] [facility] 2023-12-16 13:30:00 2023-12-16 14:01:42 Outpatient R CLIFF BEY [facility] [id number] [facility] 2023-12-16 13:30:00 2023-12-16 14:01:42 [facility] [id number] 350.1.13.10 [id number] [id number] [facility] 2023-11-03 14:22:48 2023-11-03 23:59:00 Hospital En[facility] [id number] 350.1.13.10 4.2.7.2.686 [id number] [facility] 2023-11-03 14:30:00 2023-11-03 15:10:51 Outpatient R CLIFF BEY [facility] [id number] [facility] 2023-11-03 14:30:00 2023-11-03 15:10:51 Office Visit Cliff Bey [facility] [id number] 350.1.13.10 4.2.7.2.686 [id number] [facility] 2023-11-01 00:00:00 2023-11-01 00:00:00 Telephone Cliff [facility] [id number] 350.1.13.10 4.2.7.2.686 [id number] [facility] 2023-10-18 00:00:00 2023-10-18 00:00:00 Telephone Cliff Bey COUNT INCLUDES THE [facility] MEDICAL OFFICE BUILDING [id number] 350.1.13.10 4.2.7.2.686 [id number] [facility] 2023-10-06 16:28:59 2023-10-06 23:59:00 Hospital Encounter Cliff Bey [facility] 1.840.114 350.1.13.10 4.2.7.2.686 [id number] [facility] 2023-10-06 15:45:00 2023-10-06 17:16:11 Outpatient R BEYCLIFF [facility] [id number] [facility] 2023-10-06 15:45:00 2023-10-06 17:16:11 Office Visit Cliff Bey [facility] MEDICAL OFFICE BUILDING 1.840.114 350.1.13.10 4.2.7.2.686 [id number] [facility] 2023-10-06 00:00:00 2023-10-06 00:00:00 Orders Only Doctor Unassigned, [place] [facility] 1.284.114 350.1.13.10 4.2.7.2.686 [id number] [facility] 2023-10-04 00:00:00 2023-10-04 00:00:00 Telephone Cliff Bey [facility] [id number] 350.1.13.10 4.2.7.2.686 [id number] [facility] 2023-10-01 00:00:00 2023-10-01 00:00:00 Outpatient GC_GCBZW_Ka diyala_S PRIV PRIV [id number] [facility] 2023-09-23 00:00:00 2023-09-23 00:00:00 Transition of Care Myra Baca [id number] 350.1.13.10 4.2.7.2.686 [id number] [facility] 2023-09-19 16:30:00 2023-09-22 15:31:00 Inpatient X [facility] [id number] [facility] 2023-09-19 16:30:00 2023-09-22 15:31:00 Hospital Encounter Niranjan NoemyVonnie LoweryvandanaBrianKeegan [facility] [id number] 350.1.13.10 4.2.7.2.686 [id number] [facility] 2023-09-20 17:18:00 2023-09-20 19:13:00 Surgery Cliff Bey [facility] [place] 1..840.114 [id number] [facility] 2023-08-30 00:00:00 2023-08-30 00:00:00 Outpatient GC_GCBZW_Ka diyala_S PRIV PRIV [id number] [facility] 2023-08-16 00:00:00 2023-08-16 00:00:00 Outpatient GC_GCBZW_Ka diyala_S PRIV PRIV [id number] [facility] 2023-05-23 00:00:00 2023-05-23 00:00:00 Outpatient GC_GCBZW_Ka diyala_S PRIV PRIV [id number] [facility] Results Test Description Test Time Test Comments Results Result Co mments Source [facility] mean corpuscular hemoglobin (mass per erythrocyte)2024-03-25 01:26:00* Test Item Value Reference Range Interpretation Comme nts Mean Corpuscular Hemoglobin (test code = 785-6) 31.1 27.0-32.0 [facility] mean corpuscular hemoglobin concentration (MCHC) measurement ([id number] 01:26:00* Test Item Value Reference Range Interpretation Comme [facility] Mean Corpuscular Hemoglobin Concent (test code = 786-4) 32.7 32.0-36.0 [facility] erythrocyte distribution width dqlzl7846-08-15 01:26:00* Test Item Value Reference Range Interpretation Comme [facility] Red Cell Distribution Width (test code = 788-0) 13.7 0.0-15.5 [facility] platelet count (count/volume)2024-03-25 01:26:00* Test Item Value Reference Range Interpretation Comme [facility] Platelet Count (test code = 777-3) 283 130-400 [facility] mean volume texzxrscwpp2989-50-10 01:26:00* Test Item Value Reference Range Interpretation Comme [facility] Mean Platelet Volume (test c ode = 61146-6) 9.3 9.2-12.2 [facility] neutrophil count as percentage of total mrqakrcbkb0207-64-39 01:26:00* Test Item Value Reference Range Interpretation Comme [facility] Neutrophils (%) (Auto) (test code = 770-8) 76.9 50-80 [facility] immature granulocyte count as percentage of total rjjvgoehxn3615-60-99 01:26:00* Test Item Value Reference Range Interpretation Comme nts Immature Granulocyte # (Auto ) (test code = 64764-6) 0.0600 0.0-0.0310 [facility] lymphocyte count as percentage of total alfmrbukaw5979-10-21 01:26:00* Test Item Value Reference Range Interpretation Comme nts Lymphocytes (%) (Auto) (test code = 736-9) 13.6 20.0-45.0 [facility] monocyte count as percentage of total tsxhswlitz6061-63-60 01:26:00* Test Item Value Reference Range Interpretation Comme nts Monocytes (%) (Auto) (test c ode = 5905-5) 7.3 2-10 [facility] eosinophil count as percentage of total bodobtuwhq8206-86-70 01:26:00* Test Item Value Reference Range Interpretation Comme nts Eosinophils (%) (Auto) (test code = 713-8) 1.2 0-6 [facility] basophil count as percentage of total xuceplbrdx7242-73-26 01:26:00* Test Item Value Reference Range Interpretation Comme nts Basophils (%) (Auto) (test c ode = 706-2) 0.5 0-3 [facility] nucleated erythrocyte count as percentage of total jmtiqjxowt9012-95-66 01:26:00* Test Item Value Reference Range Interpretation Comme nts Nucleated Red Blood Cells % (test code = 85175-3) 0.0 0-0.2 [facility] count (number/volume)2024-03-25 01:26:00* Test Item Value Reference Range Interpretation Comme nts Neutrophils # (Auto) (test c ode = 751-8) 9.3 1.4-7.0 [facility] lymphocyte count (number/volume)2024-03-25 01:26:00* Test Item Value Reference Range Interpretation Comme nts Lymphocytes # (Auto) (test c ode = 731-0) 1.7 1.2-4.0 [facility] monocytes automated count (number/volume)2024-03-25 01:26:00* Test Item Value Reference Range Interpretation Comme nts Monocytes # (Auto) (test code = 742-7) 0.9 0.1-0.8 [facility] eosinophil kppni3792-41-97 01:26:00* Test Item Value Reference Range Interpretation Comme nts Eosinophils # (Auto) (test c ode = 711-2) 0.1 0.0-0.6 [facility] basophil count (number/volume)2024-03-25 01:26:00* Test Item Value Reference Range Interpretation Comme nts Basophils # (Auto) (test code = 704-7) 0.1 0.0-0.3 [facility] leukocyte count corrected for nucleated kybltogbqvro1874-60-17 01:26:00* Test Item Value Reference Range Interpretation Comme nts Nucleated Red Blood Cells # (test code = 39409-5) 0.000 0-0.012 [facility])2024-03-25 01:26:00* Test Item Value Reference Range Interpretation Comme nts Sodium Level (test code = 57884-8) 141 131-143 [facility] plasma potassium measurement (moles/volume)2024-03-25 01:26:00* Test Item Value Reference Range Interpretation Comme nts Potassium Level (test code = 2823-3) 3.4 3.5-5.1 [facility] chloride measurement (moles/volume)2024-03-25 01:26:00* Test Item Value Reference Range Interpretation Comme [facility] Chloride Level (test code = 2075-0) 110 98-107 [facility] carbon dioxide measurement (moles/volume)2024-03-25 01:26:00* Test Item Value Reference Range Interpretation Comme nts Carbon Dioxide Level (test c ode = 8-9) 22 21-32 [facility] plasma anion ndc5644-68-33 01:26:00* Test Item Value Reference Range Interpretation Comme [facility] Anion Gap (test code = 24158-3) 9.0 3.0-11.0 [facility] urea nitrogen measurement (mass/volume)2024-03-25 01:26:00* Test Item Value Reference Range Interpretation Comme nts Blood Urea Nitrogen (test co de = 3094-0) 14.0 7.0-18.0 [facility] creatinine measurement (mass/volume)2024-03-25 01:26:00* Test Item Value Reference Range Interpretation Comme nts Creatinine (test code = 2160-0) 0.68 0.55-1.02 [facility] estimate [id number] 01:26:00* Test Item Value Reference Range Interpretation Comme nts Estimat Glomerular Filtratio n Rate (test code = 612217604) > 60 >60 [facility] urea nitrogen/creatinine mass dyses2271-42-19 01:26:00* Test Item Value Reference Range Interpretation Comme nts BUN/Creatinine Ratio (test c ode = 3097-3) 20.58 [facility] leukocyte count (number/volume)2024-03-25 01:26:00* Test Item Value Reference Range Interpretation Comme [facility] White Blood Count (test code = 6690-2) 12.1 4.5-10.0 [facility] glucose measurement (mass/volume)2024-03-25 01:26:00* Test Item Value Reference Range Interpretation Comme [facility] Glucose Level (test code = 2345-7) 113 74-106 [facility] calcium measurement (mass/volume)2024-03-25 01:26:00* Test Item Value Reference Range Interpretation Comme [facility] Calcium Level (test code = 48364-7) 8.5 8.5-10.1 [facility] magnesium measurement (mass/volume)2024-03-25 01:26:00* Test Item Value Reference Range Interpretation Comme nts Magnesium Level (test code = 62669-4) 2.0 1.6-2.6 [facility] total bilirubin measurement (mass/volume)2024-03-25 01:26:00* Test Item Value Reference Range Interpretation Comme [facility] Total Bilirubin (test code = 1975-2) 0.7 0.2-1.0 [facility] plasma aspartate aminotransferase measurement (enzymatic activity/volume)2024-03-25 01:26:00* Test Item Value Reference Range Interpretation Comme nts Aspartate Amino Transf (AST/ SGOT) (test code = 1920-8) 67 15-37 [facility] alanine aminotransferase measurement (enzymatic activity/volume)2024-03-25 01:26:00* Test Item Value Reference Range Interpretation Comme nts Alanine Aminotransferase (AL T/SGPT) (test code = 1742-6) 72 13-56 [facility] protein measurement (mass/volume)2024-03-25 01:26:00* Test Item Value Reference Range Interpretation Comme nts Total Protein (test code = 2885-2) 6.6 6.4-8.2 [facility] albumin measurement (mass/volume)2024-03-25 01:26:00* Test Item Value Reference Range Interpretation Comme nts Albumin (test code = 1751-7) 3.5 3.4-5.0 [facility] or plasma alkaline phosphatase measurement (enzymatic activity/volume)2024-03-25 01:26:00* Test Item Value Reference Range Interpretation Comme nts Alkaline Phosphatase (test c ode = 6768-6) 59 45-117 [facility] erythrocytes automated count (number/volume)2024-03-25 01:26:00* Test Item Value Reference Range Interpretation Comme nts Red Blood Count (test code = 789-8) 3.92 4.20-5.40 [facility] (mass/volume) 2024-03-25 01:26:00* Test Item Value Reference Range Interpretation Comme nts Hemoglobin (test code = 718-7) 12.2 12.0-16.0 [facility] blood hematocrit (volume fraction)2024-03-25 01:26:00* Test Item Value Reference Range Interpretation Comme nts Hematocrit (test code = 4544-3) 37.3 37.0-47.0 [facility] urine color determination 2024-03-25 00:58:00* Test Item Value Reference Range Interpretation Comme nts Urine Color (test code = 47316-5) LtYellow Yellow [facility] by Refractometry automated 2024-03-25 00:58:00* Test Item Value Reference Range Interpretation Comme nts Urine Appearance (test code = 42435-7) Clear Clear [facility] pH measurement by test strip 2024-03-25 00:58:00* Test Item Value Reference Range Interpretation Comme nts Urine pH (test code = 5803-2) 6.5 5.0-8.0 [facility] specific gravity by fxlydkbvxwbzc8701-02-87 00:58:00* Test Item Value Reference Range Interpretation Comme nts Urine Specific [place] (test code = 37358-7) 1.009 1.005-1.030 [facility] protein measurement 2024-03-25 00:58:00* Test Item Value Reference Range Interpretation Comme [facility] Urine Protein (test code = 08143066) 10 Negative [facility] glucose jbearmgsq7773-59-63 00:58:00* Test Item Value Reference Range Interpretation Comme [facility] Urine Glucose (UA) (test cod e = 40424-9) Negative Negative [facility] ketones detection by automated test waqol6426-15-77 00:58:00* Test Item Value Reference Range Interpretation Comme [facility] Urine Ketones (test code = 97261-2) Negative Negative [facility] erythrocytes detection by automated litoxo7149-01-48 00:58:00* Test Item Value Reference Range Interpretation Comme [facility] Urine Occult Blood (test cod e = 59231-7) Negative Negative [facility] urine nitrite measurement 2024-03-25 00:58:00* Test Item Value Reference Range Interpretation Comme [facility] Urine Nitrite (test code = 94499-2) Negative Negative [facility] total bilirubin detection by automated test ietqs6553-28-21 00:58:00* Test Item Value Reference Range Interpretation Comme [facility] Urine Bilirubin (test code = 57248-8) Negative Negative [facility] urine urobilinogen measurement 2024-03-25 00:58:00* Test Item Value Reference Range Interpretation Comme [facility] Urine Urobilinogen (test cod e = 16428790) Normal Normal [facility] leukocytes detection by automated dxnelp5833-64-52 00:58:00* Test Item Value Reference Range Interpretation Comme [facility] Urine Leukocyte Esterase (te st code = 92805-0) 75 Negative [facility] erythrocytes count in urine sediment (number/area)2024-03-25 00:58:00* Test Item Value Reference Range Interpretation Comme [facility] Urine RBC (test code = 69153-3) 0-2 0-2 [facility] leukocytes count in urine sediment (number/area)2024-03-25 00:58:00* Test Item Value Reference Range Interpretation Comme [facility] Urine WBC (test code = 67578-4) 10-20 0-2 [facility] squamous epithelial cells count in urine sediment (number/area)2024-03-25 00:58:00* Test Item Value Reference Range Interpretation Comme [facility] Urine Squamous Epithelial Cells (test code = 34144-9) 2+ Moderate See_Comment [Automated message] The system which generated this result transmitted reference range: 0 - 1+. The reference range was not used to interpret this result as normal/abnormal. [facility] bacteria count in urine sediment (number/area)2024-03-25 00:58:00* Test Item Value Reference Range Interpretation Comme [facility] Urine Bacteria (test code = 80630-4) None See_Comment [Automated messa ge] The system which generated this result transmitted reference range: 0-+/-. The reference range was not used to interpret this result as normal/abnormal. [facility] hyaline casts count in urine sediment (number/area)2024-03-25 00:58:00* Test Item Value Reference Range Interpretation Comme [facility] Urine Hyaline Casts (test co de = 08589-5) 2-4 None Seen [facility]Autom[facility] mucus count in urine sediment (number/area)2024-03-25 00:58:00* Test Item Value Reference Range Interpretation Comme nts Urine Mucus (test code = 18719-3) +/- See_Comment [Automated messa ge] The system which generated this result transmitted reference range: 0-1+. The reference range was not used to interpret this result as normal/abnormal. [facility] Cmnt 03 LCF-Pjy6395-83-31 00:58:00 * Test Item Value Reference Range Interpretation Comme nts Urine Culture Indicated (test code = 8264-4) Yes, Criteria Met [facility] amphetamines detection by screening krtamp8823-31-69 00:58:00* Test Item Value Reference Range Interpretation Comme nts Urine Amphetamines Screen (t est code = 68688-8) Negative Negative [facility] barbiturates detection by screening glnpsz9228-02-15 00:58:00* Test Item Value Reference Range Interpretation Comme nts Urine Barbiturates Screen (t est code = 87650-5) Negative Negative [facility] benzodiazepines detection by screening lanbua0224-84-97 00:58:00* Test Item Value Reference Range Interpretation Comme nts Urine Benzodiazepines Screen (test code = 76178-2) Negative Negative [facility] benzoylecgonine detection by screening mztbtz1570-93-08 00:58:00* Test Item Value Reference Range Interpretation Comme [facility] Urine Cocaine Screen (test c ode = 33050-4) Negative Negative [facility] methadone erabbv2130-26-76 00:58:00* Test Item Value Reference Range Interpretation Comme nts Urine Methadone, Qualitative (test code = 61205-4) Negative Negative [facility] opiates screening brns4775-12-05 00:58:00* Test Item Value Reference Range Interpretation Comme nts Urine Opiates Screen (test c ode = 97152-6) Negative Negative [facility] phencyclidine detection by screening ifjtku6128-24-75 00:58:00* Test Item Value Reference Range Interpretation Comme nts Urine Phencyclidine Screen ( test code = 94694-3) Negative Negative [facility] cannabinoids detection by screening tlrqoo1855-53-21 00:58:00* Test Item Value Reference Range Interpretation Comme [facility] Urine Cannabinoids (test cod e = 41485-5) Negative Negative [facility] pH measurement by automated test lwfga2172-73-42 00:58:00* Test Item Value Reference Range Interpretation Comme [facility] Urine pH (test code = 34160-0) 6.5 5.0-8.0 [facility] blood glucose measurement by glucometer (mass/volume)2024-03-25 00:56:00* Test Item Value Reference Range Interpretation Comme [facility] Bedside Glucose (test code = 81692-6) 111 70-105 [facility] blood prothrombin pdtw6967-23-06 22:33:00* Test Item Value Reference Range Interpretation Comme [facility] Prothrombin Time (test code = 5964-2) 14.8 10.2-12.9 [facility] in Platelet poor plasma by Coagulation wlvsk4427-22-09 22:33:00* Test Item Value Reference Range Interpretation Comme [facility] Prothromb Time International Ratio (test code = 6301-6) 1.3 0.9-1.1 [facility]Partial thromboplastin time (PTT) in platelet poor ytvfcr2822-12-62 22:33:00* Test Item Value Reference Range Interpretation Comme [facility] Activated Partial Thrombopla st Time (test code = 68650-7) 29.5 26.0-38.7 [facility] HospitalTroponin I SerPl VK-vItl6154-65-30 22:33:00 * Test Item Value Reference Range Interpretation Comme [facility] Troponin I High Sensitivity (test code = 19835-4) 10 3-53 [facility] or plasma brain natriuretic peptide (BNP) gqvfhbyhehg5845-13-37 22:33:00* Test Item Value Reference Range Interpretation Comme [facility] B-Type Natriuretic Peptide ( test code = 00168-5) 20 0.0-[address] [facility] or plasma ethanol measurement (mass/volume)2024-03-24 22:33:00* Test Item Value Reference Range Interpretation Comme nts Ethyl Alcohol Level (test co de = 5643-2) < 3.0 [facility]ersonL[facility] CenterCONSENT TO CONTACT FOR VOLUNTARY RESEARCH 2023-10-06 20:25:24* Test Item Value Reference Range Interpretation Comme nts Consent To Contact For Volun Babelwayy Research (test code = 4947) Yes [facility] [id number] 18:26:37HISTORY: Fever. TECHNIQUE: Portable AP view of the chest is obtained. Comparison made with09/19/2023study. FINDINGS: No acute pneumonia. No pneumothorax or pleural effusion orpulmonary congestion detected. Mild cardiomegaly noted. CONCLUSIONS: Cardiomegaly.[facility] TIME OR (NON-REPORTABLE) 2023-09-22 15:08:54These images do not require a Radiology diagnostic report. [facility] 2 views upfqchlak5737-96-02 13:36:04EXAM: XR HIPS 2 VW BILATERAL HISTORY: right hip ?rodding COMPARISON: 09/19/2023 FINDINGS: Hardware fixation of the right proximal femur fracture is seen withimproved alignment. No hardware complication is identified. Postsurgicalsoft tissue swelling, gas and davie are noted.[facility] 2 views dbuioiqam9740-97-58 13:36:04EXAM: XR HIPS 2 VW BILATERAL HISTORY: right hip ?rodding COMPARISON: 09/19/2023 FINDINGS: Hardware fixation of the right proximal femur fracture is seen withimproved alignment. No hardware complication is identified. Postsurgicalsoft tissue swelling, gas and davie are noted.[facility] IrvingTransthoracic echo (TTE) 2023-09-20 16:49:19* Test Item Value Reference Range Interpretation Comme nts Height (test code = 3588741697) 63 in Weight (test code = 8059276442) 146 lbs Systolic BP (test code = 8661254952) 142 mmHg Diastolic BP (test code = 9158251263) 79 mmHg Heart Rate (test code = 0673671842) 71 bpm BSA (test code = 5510647135) 1.69 m2 Ao root diam (test code = 6312633156) 3.50 cm Aortic root (test code = 2656312077) 3.5 cm Ao root annulus (test code = 0519554430) 3.5 cm LVOT diameter (test code = 4351240751) 1.90 cm LVOT area (test code = 6247075417) 2.80 cm2 LVIDD (test code = 5439289484) 3.90 cm Left Ventricular End Diastolic Volume by Teichholz Method (test code = 7777209) 66.5 mL IVS (test code = 9441880200) 1.27 cm Interventricular Septum Diastolic Thickness by 2D (test code = 0149059) 1.27 cm LVPWD (test code = 9633181655) 1.29 cm PW (test code = 3953862678) 1.29 cm 0.6-1.1 EF(Teich) (test code = 2733884491) 63.00 % LVIDS (test code = 4251761076) 2.60 cm Left Ventricular End Systolic Volume by Teichholz Method (test code = 7683600) 24.6 mL FS (test code = 9504656540) 34 % EF - 2D (test code = 86037478) 63.00 % LA size (test code = 3773120099) 2.7 cm Pulmonic Regurgitant End Max Velocity (test code = 1511955680) 115.5 cm/s E wave decelartion time (test code = 3889779762) 0.22 s MV Peak E Dexter (test code = 9792142822) 93.8 cm/s MV stenosis pressure 1/2 time (test code = 3940165823) 66.3 ms MV Peak A Dexter (test code = 1574791912) 90.1 cm/s E/A ratio (test code = 0779021307) 1.04 ratio MV Prop V (test code = 2914814474) 52.10 cm/s MV E/e' septal (test code = 6815710612) 10.1 cm/s LAV(MOD-sp4) (test code = 4482376218) 66.70 mL Tapse (test code = 3999248063) 2.17 cm LVOT stroke volume (test code = 8561841330) 69.70 cm3 LVOT peak dexter (test code = 3227283582) 101.7 cm/s LVOT mn grad (test code = 9492283567) 2.4 mmHg AV LVOT peak gradient (test code = 2859658567) 4.1 mmHg LVOT peak VTI (test code = 3353031058) 24.5 cm LV V1 mean (test code = 8681688769) 73.20 cm/s Aortic valve mean velocity (test code = 8849276288) 98.8 cm/s Ao peak dexter (test code = 2797944497) 139.6 cm/s Ao VTI (test code = 4276458448) 29.9 cm AV area by cont VTI (test code = 8507878101) 2.3 cm2 AV area peak dexter (test code = 8816439210) 2.1 cm2 Ao max PG (test code = 9229402040) 7.80 mm[Hg] AV peak gradient (test code = 5927864556) 7.8 mmHg AV valve area (test code = 6782878764) 2.33 cm2 AV mean gradient (test code = 7621831120) 4.3 mmHg Radiology Study observation (narrative) (test code = 18452-4) CLIFTON (test code = CLIFTON) ?Left?Ventricle: Left ventricle size is normal. Mildly increased wall thickness. Normal wall motion. Normal systolic function with a visually estimated EF of 60 - 65%. Diastolic dysfunction. Normal left ventricular filling pressure. ?Right?Ventricle: Right ventricle size is normal. Normal systolic function. ?Tricuspid?Valve: Insufficient tricuspid regurgitation jet to estimate RVSP . ?RA pressure is 5-10 mmHg. Left VentricleLeft ventricle size is normal. Mildly increased wall thickness. Normal wall motion. Normal systolic function with a visually estimated EF of 60 - 65%. Diastolic dysfunction. Normal left ventricular filling pressure.Right VentricleRight ventricle size is normal. Normal systolic function.Left AtriumLeft atrium size is normal.Right AtriumRight atrium size is normal.IVC/SVCIVC diameter is greater than 21 mm and decreases greater than 50% during inspiration; therefore the estimated right atrial pressure is intermediate (~8 mmHg).Mitral ValveMitral valve structure is normal. Trace transvalvular regurgitation.Tricusp id ValveTricuspid valve structure is normal. Trace transvalvular regurgitation. Insufficient tricuspid regurgitation jet to estimate RVSP . RA pressure is 5-10 mmHg.Aortic ValveTricuspid.Pulmon ic ValveNot well visualized. Mild transvalvular regurgitation.Ascendi ng AortaNormal sized aorta.PericardiumThe pericardium is normal. No pericardial effusion.Study DetailsStudy quality was adequate. A complete echocardiogram was performed using 2D, color flow Doppler and spectral Doppler. [facility] ([facility]2023-09-20 16:49:19* Test Item Value Reference Range Interpretation Comme nts Height (test code = 9180303046) 63 in Weight (test code = 1183508844) 146 lbs Systolic BP (test code = 3941544248) 142 mmHg Diastolic BP (test code = 3797096520) 79 mmHg Heart Rate (test code = 6727713358) 71 bpm BSA (test code = 5629623543) 1.69 m2 Ao root diam (test code = 5126264058) 3.50 cm Aortic root (test code = 7549898283) 3.5 cm Ao root annulus (test code = 1033246764) 3.5 cm LVOT diameter (test code = 4227918200) 1.90 cm LVOT area (test code = 9660664738) 2.80 cm2 LVIDD (test code = 1440856560) 3.90 cm Left Ventricular End Diastolic Volume by Teichholz Method (test code = 5335409) 66.5 mL IVS (test code = 5004794316) 1.27 cm Interventricular Septum Diastolic Thickness by 2D (test code = 4494722) 1.27 cm LVPWD (test code = 9497474214) 1.29 cm PW (test code = 3528555526) 1.29 cm 0.6-1.1 EF(Teich) (test code = 4071029273) 63.00 % LVIDS (test code = 4403460252) 2.60 cm Left Ventricular End Systolic Volume by Teichholz Method (test code = 3599334) 24.6 mL FS (test code = 0659489528) 34 % EF - 2D (test code = 75885561) 63.00 % LA size (test code = 1672407726) 2.7 cm Pulmonic Regurgitant End Max Velocity (test code = 6748609934) 115.5 cm/s E wave decelartion time (test code = 1115862929) 0.22 s MV Peak E Dexter (test code = 0178713542) 93.8 cm/s MV stenosis pressure 1/2 time (test code = 7040654164) 66.3 ms MV Peak A Dexter (test code = 0912927126) 90.1 cm/s E/A ratio (test code = 5643219041) 1.04 ratio MV Prop V (test code = 0852623595) 52.10 cm/s MV E/e' septal (test code = 0554170030) 10.1 cm/s LAV(MOD-sp4) (test code = 0328168821) 66.70 mL Tapse (test code = 8082570402) 2.17 cm LVOT stroke volume (test code = 8122002605) 69.70 cm3 LVOT peak dexter (test code = 0162348355) 101.7 cm/s LVOT mn grad (test code = 9602423673) 2.4 mmHg AV LVOT peak gradient (test code = 3515341462) 4.1 mmHg LVOT peak VTI (test code = 4146817645) 24.5 cm LV V1 mean (test code = 2755930451) 73.20 cm/s Aortic valve mean velocity (test code = 5857947308) 98.8 cm/s Ao peak dexter (test code = 2437851056) 139.6 cm/s Ao VTI (test code = 1798482792) 29.9 cm AV area by cont VTI (test code = 0422456091) 2.3 cm2 AV area peak dexter (test code = 8266098082) 2.1 cm2 Ao max PG (test code = 2725353102) 7.80 mm[Hg] AV peak gradient (test code = 7833761646) 7.8 mmHg AV valve area (test code = 4021344718) 2.33 cm2 AV mean gradient (test code = 0472568365) 4.3 mmHg Radiology Study observation (narrative) (test code = 62513-1) CLIFTON (test code = CLIFTON) ?Left?Ventricle: Left ventricle size is normal. Mildly increased wall thickness. Normal wall motion. Normal systolic function with a visually estimated EF of 60 - 65%. Diastolic dysfunction. Normal left ventricular filling pressure. ?Right?Ventricle: Right ventricle size is normal. Normal systolic function. ?Tricuspid?Valve: Insufficient tricuspid regurgitation jet to estimate RVSP . ?RA pressure is 5-10 mmHg. Left VentricleLeft ventricle size is normal. Mildly increased wall thickness. Normal wall motion. Normal systolic function with a visually estimated EF of 60 - 65%. Diastolic dysfunction. Normal left ventricular filling pressure.Right VentricleRight ventricle size is normal. Normal systolic function.Left AtriumLeft atrium size is normal.Right AtriumRight atrium size is normal.IVC/SVCIVC diameter is greater than 21 mm and decreases greater than 50% during inspiration; therefore the estimated right atrial pressure is intermediate (~8 mmHg).Mitral ValveMitral valve structure is normal. Trace transvalvular regurgitation.Tricusp id ValveTricuspid valve structure is normal. Trace transvalvular regurgitation. Insufficient tricuspid regurgitation jet to estimate RVSP . RA pressure is 5-10 mmHg.Aortic ValveTricuspid.Pulmon ic ValveNot well visualized. Mild transvalvular regurgitation.Ascendi ng AortaNormal sized aorta.PericardiumThe pericardium is normal. No pericardial effusion.Study DetailsStudy quality was adequate. A complete echocardiogram was performed using 2D, color flow Doppler and spectral Doppler. [facility] Confirmation (Lab Only)2023-09-20 00:37:00* Test Item Value Reference Range Interpretation Comme nts ABO & RH (test code = 20) O Positive [facility] Confirmation (Lab Only)2023-09-20 00:37:00* Test Item Value Reference Range Interpretation Comme nts ABO & RH (test code = 20) O [facility] / [id number] 23:54:54* Test Item Value Reference Range Interpretation Comme [facility] PROTIME PATIENT (test code = 5964-2) 8.9 10.1-12.6 L INR (test code = 6301-6) 0.8 Normal INR <1.1; Warfarin Therapeutic range 2.0 to 3.0 or 2.5 to 3.5, depending upon the indications. Lab Interpretation (test code = 96518-1) Abnormal [facility] / [id number] 23:54:54* Test Item Value Reference Range Interpretation Comme [facility] PROTIME PATIENT (test code = 5964-2) 8.9 10.1-12.6 L INR (test code = 6301-6) 0.8 Normal INR <1.1; Warfarin Therapeutic range 2.0 to 3.0 or 2.5 to 3.5, depending upon the indications. Lab Interpretation (test code = 08765-4) Abnormal [facility] 1 [id number] 23:41:24Chest X- Ray Indication: Pre op ? , hip fracture repair Technique: Frontal view(s) of the chest submitted for interpretation. Comparison: None RL: Ordering Clinician: NOEMY UREÑA Technical Quality: Adequate Findings: No consolidation or effusion. ?No acute mediastinal abnormality. ?No [facility]utefractures.[facility] [id number] 23:41:24Chest X-Ray Indication: Pre op ? , hip fracture repair Technique: Frontal view(s) of the chest submitted for interpretation. Comparison: None RL: Ordering Clinician: NOEMY UREÑA Technical Quality: Adequate Findings: No consolidation or effusion. ?No acute mediastinal abnormality. ?No acutefractures.[facility] [id number] 23:39:15* Test Item Value Reference Range Interpretation Comme nts NT-proBNP (test code = 79789-1) 53 pg/mL <=125 Lab Interpretation (test cod e = 88352-9) Normal [facility] [id number] 23:39:15* Test Item Value Reference Range Interpretation Comme nts NT-proBNP (test code = 31272-9) 53 pg/mL <=125 Lab Interpretation (test cod e = 67236-2) Normal [facility] Irving[facility]. Metabolic Panel (64069)2023-09-19 23:30:52* Test Item Value Reference Range Interpretation Comme nts NA (test code = 9808864395) 142 mmol/L 135-145 K (test code = 0587625488) 3.3 mmol/L 3.5-5.0 L CL (test code = 6570074539) 107 mmol/L 98-108 CO2 TOTAL (test code = 9964382164) 29 mmol/L 23-31 AGAP (test code = 0808785483) 6 2-16 BUN (test code = 5063871992) 16 mg/dL 7-23 GLUCOSE (test code = 5337851315) 99 mg/dL 70-110 CREATININE (test code = 2160-0) 0.62 mg/dL 0.50-1.04 TOTAL BILI (test code = 7665595801) 0.5 mg/dL 0.1-1.1 CALCIUM (test code = 0211365178) 9.6 mg/dL 8.6-10.6 T PROTEIN (test code = 0837586403) 8.0 g/dL 6.3-8.2 ALBUMIN (test code = 4274430735) 4.6 g/dL 3.5-5.0 ALK PHOS (test code = 3524832783) 57 U/L 34-122 ALTv (test code = 1742-6) 40 U/L 5-35 H AST(SGOT) (test code = 4821743797) 39 U/L 13-40 eGFR (test code = 61930-4) 96.5 mL/min/1.73m2 CKD-EPI eGFR (2020). Assuming creatinine has been stable day-to-day for at least three months, the eGFR indicates Category G1 (>= 90 mL/min/1.73 m2) Lab Interpretation (test code = 58525-8) Abnormal [facility] Irving[facility] Metabolic Panel (87253)2023-09-19 23:30:52* Test Item Value Reference Range Interpretation Comme nts NA (test code = 9419064432) 142 mmol/L 135-145 K (test code = 6107901365) 3.3 mmol/L 3.5-5.0 L CL (test code = 7134844511) 107 mmol/L 98-108 CO2 TOTAL (test code = 1225126528) 29 mmol/L 23-31 AGAP (test code = 3901647317) 6 2-16 BUN (test code = 3048336596) 16 mg/dL 7-23 GLUCOSE (test code = 4112230595) 99 mg/dL 70-110 CREATININE (test code = 2160-0) 0.62 mg/dL 0.50-1.04 TOTAL BILI (test code = 5266334668) 0.5 mg/dL 0.1-1.1 CALCIUM (test code = 8857794468) 9.6 mg/dL 8.6-10.6 T PROTEIN (test code = 5473945718) 8.0 g/dL 6.3-8.2 ALBUMIN (test code = 1884542050) 4.6 g/dL 3.5-5.0 ALK PHOS (test code = 0973681024) 57 U/L 34-122 ALTv (test code = 1742-6) 40 U/L 5-35 H AST(SGOT) (test code = 0977172940) 39 U/L 13-40 eGFR (test code = 11922-0) 96.5 mL/min/1.73m2 CKD-EPI eGFR (2020). Assuming creatinine has been stable day-to-day for at least three months, the eGFR indicates Category G1 (>= 90 mL/min/1.73 m2) Lab Interpretation (test code = 31141-9) Abnormal [facility] IrvingXR HIPS 2 VW [id number] 23:30:10XR HIPS 2 VW RIGHT Indication: pain s/p fall Technique: Frontal and frogleg views are submitted forinterpretation. Comparison: None. RL: Ordering Clinician: NOEMY UREÑA Technical Quality: Adequate Findings:Fracture of the most proximal aspects of the right femoral diaphysis withapex lateral angulation at the fracture site. The femoral diaphysis isdisplaced by 2.3 cm anteriorly. The femoral neck is intact. Pedicle screwsand rods fixating L4-L5. ? Soft tissue swelling adjacent to fracture.[facility] IrvingXR HIPS 2 VW [id number] 23:30:10XR HIPS 2 VW RIGHT Indication: pain s/p fall Technique: Frontal and frogleg views are submitted forinterpretation. Comparison: None. RL: Ordering Clinician: NOEMY UREÑA Technical Quality: Adequate Findings:Fracture of the most proximal aspects of the right femoral diaphysis withapex lateral angulation at the fracture site. The femoral diaphysis isdisplaced by 2.3 cm anteriorly. The femoral neck is intact. Pedicle screwsand rods fixating L4-L5. ? Soft tissue swelling adjacent to fracture.[facility] with [id number] 23:10:51* Test Item Value Reference Range Interpretation Comme nts WBC (test code = 6690-2) 10.10 4.30-11.10 RBC (test code = 789-8) 4.26 3.93-5.25 HGB (test code = 718-7) 13.2 g/dL 11.6-15.0 HCT (test code = 4544-3) 40.1 % 35.7-45.2 MCV (test code = 787-2) 94.1 fL 80.6-95.5 MCH (test code = 785-6) 31.0 pg 25.9-32.8 MCHC (test code = 786-4) 32.9 g/dL 31.6-35.1 RDW-SD (test code = 43926-9) 45.0 fL 39.0-49.9 RDW-CV (test code = 788-0) 13.2 % 12.0-15.5 PLT (test code = 777-3) 329 166-358 MPV (test code = 87720-8) 8.8 fL 9.5-12.9 L NRBC/100 WBC (test code = 5986324345) 0.0 0.0-10.0 NRBC x10^3 (test code = 0250636005) See_Comment [Automated messa ge] The system which generated this result transmitted reference range: 10*3/?L. The reference range was not used to interpret this result as normal/abnormal. GRAN MAT (NEUT) % (test code = 770-8) 48.3 % IMM GRAN % (test code = 7530549275) 0.50 % LYMPH % (test code = 736-9) 39.6 % MONO % (test code = 5905-5) 8.8 % EOS % (test code = 713-8) 2.1 % BASO % (test code = 706-2) 0.7 % GRAN MAT x10^3(ANC) (test code = 2671300240) 4.88 10*3/uL 1.88-7.09 IMM GRAN x10^3 (test code = 3908885076) 0.05 10*3/uL 0.00-0.06 LYMPH x10^3 (test code = 731-0) 4.00 10*3/uL 1.32-3.29 H MONO x10^3 (test code = 742-7) 0.89 10*3/uL 0.33-0.92 EOS x10^3 (test code = 711-2) 0.21 10*3/uL 0.03-0.39 BASO x10^3 (test code = 704-7) 0.07 10*3/uL 0.01-0.07 Lab Interpretation (test code = 14649-2) Abnormal [facility] with [id number] 23:10:51* Test Item Value Reference Range Interpretation Comme nts WBC (test code = 6690-2) 10.10 4.30-11.10 RBC (test code = 789-8) 4.26 3.93-5.25 HGB (test code = 718-7) 13.2 g/dL 11.6-15.0 HCT (test code = 4544-3) 40.1 % 35.7-45.2 MCV (test code = 787-2) 94.1 fL 80.6-95.5 MCH (test code = 785-6) 31.0 pg 25.9-32.8 MCHC (test code = 786-4) 32.9 g/dL 31.6-35.1 RDW-SD (test code = 09706-5) 45.0 fL 39.0-49.9 RDW-CV (test code = 788-0) 13.2 % 12.0-15.5 PLT (test code = 777-3) 329 166-358 MPV (test code = 01053-3) 8.8 fL 9.5-12.9 L NRBC/100 WBC (test code = 2778681444) 0.0 0.0-10.0 NRBC x10^3 (test code = 3167192197) See_Comment [Automated messa ge] The system which generated this result transmitted reference range: 10*3/?L. The reference range was not used to interpret this result as normal/abnormal. GRAN MAT (NEUT) % (test code = 770-8) 48.3 % IMM GRAN % (test code = 3415240882) 0.50 % LYMPH % (test code = 736-9) 39.6 % MONO % (test code = 5905-5) 8.8 % EOS % (test code = 713-8) 2.1 % BASO % (test code = 706-2) 0.7 % GRAN MAT x10^3(ANC) (test code = 0367768911) 4.88 10*3/uL 1.88-7.09 IMM GRAN x10^3 (test code = 8141472627) 0.05 10*3/uL 0.00-0.06 LYMPH x10^3 (test code = 731-0) 4.00 10*3/uL 1.32-3.29 H MONO x10^3 (test code = 742-7) 0.89 10*3/uL 0.33-0.92 EOS x10^3 (test code = 711-2) 0.21 10*3/uL 0.03-0.39 BASO x10^3 (test code = 704-7) 0.07 10*3/uL 0.01-0.07 Lab Interpretation (test code = 10845-9) Abnormal [facility] Irving[facility] and Screen - ONCE [id number] 23:07:00 * Test Item Value Reference Range Interpretation Comme nts ABO & RH (test code = 20) O POSITIVE IAT (test code = 1185) Negative [facility] IrvingType and Screen - ONCE [id number] 23:07:00 * Test Item Value Reference Range Interpretation Comme nts ABO & RH (test code = 20) O POSITIVE IAT (test code = 1185) Negative [facility] IrvingLactic Acid Whole [id number] 22:47:38* Test Item Value Reference Range Interpretation Comme nts LACTIC ACID (test code = 4590684893) 1.35 mmol/L 0.50-2.20 Lab Interpretation (test cod e = 75117-6) Normal [facility] IrvingLactic Acid Whole [id number] 22:47:38* Test Item Value Reference Range Interpretation Comme nts LACTIC ACID (test code = 6697324287) 1.35 mmol/L 0.50-2.20 Lab Interpretation (test cod e = 80851-1) Normal [facility] Consult Notes Date/Time Note Provider Source 2023-09-21 11:13:55 Associated Order(s): CONSULT ADULT PHYSICAL THERAPY Patient agreeable to working with physical therapy. Patient met semi reclined in bed. and daughter is in the room and help with translation in [place]. Patient understand and speak a little kenyan. Patient agreed for family to translate. Recommend nursing staff utilize Mod A to safely assist patient with mobility out of the bed or chair. PHYSICAL THERAPY EVALUATION Consult received, chart reviewed and evaluation complete this date. Patient is referred to PT for evaluation and treatment. Patient is a 68 year old female who presents to hospital for Hip fracture, right, closed, initial encounter [S72.001A] . S/P R femur intramedullary nailing Discharge Recommendations: Therapy Needs and Potential: Patient demonstrates good potential to improve and meet therapy goals with further physical therapy services. Patient appears motivated to improve their functional mobility and return to their previous level of function. Challenges to Home Transition: increased risk of falls decreased safety awareness Equipment recommendations: Patient has or access to necessary equipment Current Functional Status and/or Treatment: AM-PAC 6 Clicks (Raw Score 0=Dependent, 24=Independent; Low function Raw Score 0= Dependent, 32=Independent): Raw Score - Basic Mobility : 18 T-Scale Score - Basic Mobility : 41.05 Bed Mobility: Supine to sit: Minimal Assistance Scooting to edge of bed: Minimal Assistance Transfers: Sit to stand: Minimal Assistance using Rolling Walker Stand to sit: Minimal Assistance using Rolling Walker Verbal cueing provided for correct hand placement and correct use of AD Ambulation: Assisted patient with ambulation as follows: 10 feet using Rolling Walker and Minimal Assistance. Requires persistent verbal and tactile cues on wt. Bearing status. Therapeutic exercise: patient educated in Hip precautions., instructed patient in the following: ankle pumps, quad sets, and patient/caregiver verbalizes understanding of instructions. After session, patient up in chair. Call button provided. Patient's family in the room. Patient nurse was notified on current condition. Patient blood pressure after PT 104/66. PLAN OF CARE: While in the hospital, PT will follow patient at least 3 times per week,once or twice a day, per patient's tolerance and needs. See below for complete details. Admit Date: 09/19/2023 Hospital Diagnosis:Hip fracture, right, closed, initial encounter [S72.001A] S/P R femur intramedullary nailing PT Diagnosis: Difficulty walking, Weakness, and functional mobility deficit Weight Bearing Precaution: TDWB, Right, LE General Precautions: General, Fall,Gruber catheter, IV Bracing/Cast present or required:N/A PMH: No past medical history on file. PSH: Past Surgical History: Procedure Laterality Date FEMUR INTRAMEDULLARY NAILING Right 09/20/2023 Surgeon: Cliff Bey MD; [place] [facility] [place] Living Situation: lives with their family, in a house DME: Rolling Walker, Four wheeled walker with seat Prior level of Mobility: community ambulation, house hold ambulation Suspected ischemic or hemorraghic stroke:No Subjective: Patient agreed to participate with PT. Patient complaint pain on R hip along the incision area. Patient/Family Goals: To get better and go home. Patient/Family verbalizes understanding of condition: Yes PAIN: -Pain Location: R hip COMMUNICATION Primary Language: [place]. Patient able to understand/speak a little kenyan. Patient agreed for family ( a daughter) to interpret during PT visit. Able to Verbalize needs: Yes Vision:good; no issues reported Hearing:good; no issues reported ORIENTATION/COGNITION: Oriented to: person, place, and date/time Awake: Yes Alert: Yes Dizzy: No Follows Commands: Yes 1-Step Yes Multi-Step Yes Inconsistent: No NEUROLOGICAL Light Touch: within functional limits bilateral LE Heel to rivera: Tone: Normal BALANCE: Sitting: Static: Good Dynamic: Good Standing: Static: Fair+ Dynamic: NT RANGE OF MOTION: within functional limits L LE, RLE not tested due to precaution STRENGTH: 4/5 (Good) LLE , RLE not tested ENDURANCE: NT SKIN INTEGRITY: not intact, R hip PROBLEM LIST: Decline in bed mobility, Decline in gait, Decline in transfers, Decreased strength, Decreased balance, Weight bearing restrictions, and Safety awareness deficits ASSESSMENT: Patient is a 68 year old female seen secondary to the above listed diagnosis. Patient would benefit from continued PT to address the above listed deficits to maximize independence and safety with functional mobility. Rehabilitation Potential: good Goals: The following goals are to maximize independence and safety with functional mobility to eventually return to prior living situation and prior functional status. Upon discharge, patient and/or family will demonstrate the followin. Supine to sit: Supervision Scooting to edge of bed: Supervision Sit to supine: Supervision 2. Sit to stand: Supervision using Rolling Walker Stand to sit: Supervision using Rolling Walker 3. Supervision with ambulation, Feet: 100 using least assistive device. 4. Demonstrate or verbalize understanding of home exercise program in order to continue with their rehab on their own. Treatment Plan: Gait training, Therapeutic exercise, Transfer training, Balance training, Bed mobility training, and Safety education, patient/caregiver education PATIENT EDUCATION: Patient provided with preferred teaching of verbal information on role of PT, plan of care. Shows readiness to learn. Verbal instruction teaching provided. Individual is able to read and verbalizes understanding of teaching provided. Total Time Tx Codes in Minutes: 25 min Total Treatment Time in Minutes: 35 min Corina Powell,PT Tx License: [id number] Required Components in Determining Evaluation Level History: No personal factors or comorbidities: No (83812) 1-2 personal factors and/or comorbidities: Yes (06168) 3 or more personal factors and/ or comorbidities: No (20552) Examination of Body System(s) Addressing 1-2 elements: Yes (88285) Addressing a total of 3 or more elements: No (99523) Addressing a total of 4 or more elements: No (96236) Clinical Presentation Stable: Yes (16272) Evolving: No (88419) Unstable: No (33557) Clinical Decision Making (Complexity) Low: No (64548) Moderate: Yes (59653) High: No (69572) Y NUTRITIONIST Corina Powell PT [facility] - Health History and Physical Notes Date/Time Note Provider Source 2023-09-20 00:03:22 Medicine History & Physical Date of Service: 09/20/2023 Pt presents from: Home CC: Hip pain History of Present Illness: Cade Henderson is a 68 year old female with a PMH of hypertension, hyperlipidemia, osteopenia who presented to the ED for hip pain following fall. She ambulates with a walker due to previous spinal surgery. She was trying to lift her walker out of the car, and fell backwards. She immediately began experiencing pain in her right hip, imaging confirmed a right femoral fracture. ROS: Pt denies fever / chills / nausea / vomiting / diarrhea / constipation / chest pain / SOB / cough / abdominal pain / dysuria / hematuria / melena / hematochezia / rashes / suicidal or homicidal ideation / All others negative Review of Hx/Meds: No current facility-administered medications on file prior to encounter. Current Outpatient Medications on File Prior to Encounter Medication Sig Dispense Refill losartan potassium (LOSARTAN ORAL) Take by mouth daily. Unknown dose, patient states 4mg but dose not available, requested for patient to have bring med SIMVASTATIN ORAL Take by mouth at bedtime. Unknown dose - patient states 4mg, dose does not exist for that med, asked patient to have bring meds I have reviewed the patient's home medications PMH: No past medical history on file. PSH: has no past surgical history on file. Family Hx: Social History Tobacco Use Smoking status: Never Passive exposure: Never Smokeless tobacco: Never Current Scheduled Medications Current IV Current Facility-Administered Medications: acetaminophen (TYLENOL) tablet 1,000 mg, 1,000 mg, Oral, Q6HPRN, Vonnie Johnson, HYDROcodone-acetaminophen (NORCO 5) 5-325 mg tablet 2 tablet, 2 tablet, Oral, Q6HPRN, Brett Ochoa MD KCL (KLOR-CON M20) tablet 40 mEq, 40 mEq, Oral, Q4H ABX, Brett Ochoa MD, 40 mEq at 09/19/232119 Objective: Vitals: Vitals: 09/19/23204409/19/23211209/19/23211909/19/232199 BP: 133/71 (!) 149/77 123/81 Pulse: 73 68 66 Resp: 14 14 18 Temp: 37.1 ?C (98.7 ?F) 37.3 ?C (99.2 ?F) TempSrc: Oral Oral SpO2: 98% 99% 94% Weight: 146 lb 9.6 oz (66.5 kg) Height: 5' 3" (1.6 m) I/O's: Intake/Output Summary (Last 24 hours) at 09/20/2023 0003 Last data filed at 09/19/20232112 Gross per 24 hour Intake 130 ml Output 650 ml Net -520 ml Physical Exam: Constitutional: A&O x3, well-developed, well-nourished, and in no distress. Head: Normocephalic and atraumatic. Eyes: PERRL. Conjunctivae and EOM are normal. Neck: Normal range of motion. Neck supple. No JVD present. Cardiovascular: Normal rate, regular rhythm, normal heart sounds Pulmonary/Chest: Effort normal and breath sounds normal. No respiratory distress. No wheezes, rales or rhonchi. Abdominal: Soft. Bowel sounds are normal. No TTP, non-distended and no masses. No rebound or guarding. Musculoskeletal: Normal range of motion. No edema or tenderness. Lymphadenopathy: No cervical adenopathy. Neurological: A&O x3. No focal deficits. Gait normal. Skin: Skin is warm and dry. No rash noted. No erythema. No pallor. Labs: BMP:BMP NA (mmol/L) Date Value 09/19/2023 142 K (mmol/L) Date Value 09/19/2023 3.3 (L) CALCIUM (mg/dL) Date Value 09/19/2023 9.6 CL (mmol/L) Date Value 09/19/2023 107 BUN (mg/dL) Date Value 09/19/2023 16 CREATININE (mg/dL) Date Value 09/19/2023 0.62 GLUCOSE (mg/dL) Date Value 09/19/2023 99 CO2 TOTAL (mmol/L) Date Value 09/19/2023 29 CBC:CBC WBC (10*3/?L) Date Value 09/19/2023 10.10 RBC (10*6/?L) Date Value 09/19/2023 4.26 PLT (10*3/?L) Date Value 09/19/2023 329 HGB (g/dL) Date Value 09/19/2023 13.2 HCT (%) Date Value 09/19/2023 40.1 BMP:Hepatic Function Panel ALBUMIN (g/dL) Date Value 09/19/2023 4.6 T PROTEIN (g/dL) Date Value 09/19/2023 8.0 TOTAL BILI (mg/dL) Date Value 09/19/2023 0.5 ALTv (U/L) Date Value 09/19/2023 40 (H) AST(SGOT) (U/L) Date Value 09/19/2023 39 ALK PHOS (U/L) Date Value 09/19/2023 57 Troponin: There are no current results on file for these tests and/or test for 1 year. I have reviewed all relevant labs Imaging: X-ray chest 1 view Result Date: 09/19/2023 Chest X-Ray Indication: Pre op , hip fracture repair Technique: Frontal view(s) of the chest submitted for interpretation. Comparison: None RL: Ordering Clinician: NOEMY UREÑA Technical Quality: Adequate Findings: No consolidation or effusion. No acute mediastinal abnormality. No acute fractures. Impression: No acute abnormalities. HIPS 2 VW RIGHT Result Date: 09/19/2023 XR HIPS 2 VW RIGHT Indication: pain s/p fall Technique: Frontal and frogleg views are submitted for interpretation. Comparison: None. RL: Ordering Clinician: NOEMY UREÑA Technical Quality: Adequate Findings: Fracture of the most proximal aspects of the right femoral diaphysis with apex lateral angulation at the fracture site. The femoral diaphysis is displaced by 2.3 cm anteriorly. The femoral neck is intact. Pedicle screws and rods fixating L4-L5. Soft tissue swelling adjacent to fracture. Impression: Proximal femoral diaphysis fracture. Assessment and plan: Principal Problem: Hip fracture, right, closed, initial encounter -Orthopedic surgery consultation - Admit to IMU - As needed morphine, Maceo, Tylenol -Strict bedrest - N.p.o. P midnight - Labs, coags in a.m. DVT prophylaxis: SCDs Advanced Care Planning ( Z71.89 ) Above assessment and plan discussed at length with patient, patient expressed full understanding. Questions and concerns addressed I spent 18 minutes discussing the advance care planning. Advanced Directive Maker: Self Level of comfort: N/A Code Status: Full Disposition: Admit to inpatient IM-INTERNAL MEDICINE STAFF [facility]
[2024-07-29] MEDS ORDERED: METOCLOPRAMIDE 5 MG TAB ONE (09:18)
--- NOTE | 2024-07-29 09:41 | RAD REPORT ---
EXAM: CT brain without contrast HISTORY: headache, head injury COMPARISON: None TECHNIQUE: Multiple contiguous axial images were obtained and a CT of the brain without contrast. Sag ittal and coronal reformats were performed. One or more of the following dose reduction techniques were used: Automated exposure control, adjust ment of the mA and/or kV according to patient size, and/or iterative reconstruction. FINDINGS: No evidence of hydrocephalus, intracranial hemorrhage, or extra-axial fluid collection. Mild generalized brain atrophy. No evidence of midline shift or areas of brain edema. The calvarium is intact. The visualized paranasal sinuses and mastoid air cells are essentially clear . IMPRESSION: No evidence of acute intracranial abnormality.
--- NOTE | 2024-07-29 09:45 | ER ---
Nurse's Notes [facility] Name: Cade Perez Age: 69 yrs Sex: Female : 1955 Arrival Date: 07/29/2024 Time: 08:51 Bed 16 Private MD: Diagnosis: Postconcussional syndrome Presentation: 07/29 09:02 Chief complaint: Spouse and/or significant other states: she fell forward out of a chair 2 days ago , she hit her head , still has pain and now dizziness when turning her head. Coronavirus screen: At this time, the client does not indicate any symptoms associated with coronavirus-19. Ebola Screen: No symptoms or risks identified at this time. Initial Sepsis Screen: Does the patient meet any 2 criteria? No. Patient's initial sepsis screen is negative. Does the patient have a suspected source of infection? No. Patient's initial sepsis screen is negative. Risk Assessment: Do you want to hurt yourself or someone else? Patient reports no desire to harm self or others. Onset of symptoms was July 27, 2024. 09:02 Method Of Arrival: Wheelchair 09:02 Acuity: BRET 3 iw Triage Assessment: 09:00 General: Appears in no apparent distress. comfortable, Behavior is calm, cooperative. rs5 Pain: Denies pain. Historical: - Allergies: : No Known Allergies; iw - Home Meds: 09:04 atorvastatin 20 mg Oral tablet [Active]; losartan 100 mg Oral tablet [Active]; iw simvastatin 20 mg Oral tablet [Active]; omeprazole 40 mg Oral capsule [Active]; - PMHx: 09:04 Hypertensive disorder; Hypercholesterolemia; Chronic back pain; iw - PSHx: 09:04 right hip; back; iw - Immunization history:: Adult Immunizations up to date. - Infectious Disease History:: Denies. - Social history:: Smoking status: Patient denies any tobacco usage or history of. Screenin:00 [facility] ED Fall Risk Assessment (Adult) History of falling in the last 3 months, rs5 including since admission Yes- single mechanical fall (1 pt) Confusion or Disorientation No (0 pts) Intoxicated or Sedated No (0 pts) Impaired Gait Yes (1 pt) Mobility Assist Device Used Yes (1 pt) Altered Elimination No (0 pt) Score/Fall Risk Level 3 or more points = High Risk Oriented to surroundings, Maintained a safe environment. Abuse screen:. Nutritional screening: No deficits noted. Tuberculosis screening: No symptoms or risk factors identified. Assessment: 09:00 General: Appears in no apparent distress. comfortable, Behavior is calm, cooperative. rs5 Pain: Denies pain. Neuro: Level of Consciousness is awake, alert, obeys commands, Oriented to person, place, time, situation. Cardiovascular: Patient's skin is warm and dry. Respiratory: Airway is patent Respiratory effort is even, unlabored, Respiratory pattern is regular, symmetrical. GI: Abdomen is round non-distended, Abd is soft and non tender X 4 quads. Reports nausea. : No signs and/or symptoms were reported regarding the genitourinary system. EENT: No signs and/or symptoms were reported regarding the EENT system. Derm: Skin is intact, Skin is pink, warm \T\ dry. Musculoskeletal: Range of motion: intact in all extremities. 09:40 Reassessment: Patient and/or family updated on plan of care and expected duration. Pain rs5 level reassessed. Patient is alert, oriented x 3, equal unlabored respirations, skin warm/dry/pink. Vital Signs: 09:02 BP 139 / 89; Pulse 75; Resp 16; Temp 98.4; Pulse Ox 97% on R/A; Weight 66.22 kg; Height iw 5 ft. 2 in. ; 09:45 BP 133 / 84; Resp 17; Pulse Ox 99% on R/A; rs5 09:02 Body Mass Index 26.70 (66.22 kg, 157.48 cm) iw ED Course: 08:53 Patient arrived in ED. ra3 08:54 Saman Whiting MD is Attending Physician. ec2 09:00 Patient has correct armband on for positive identification. Placed in gown. Bed in low rs5 position. Call light in reach. Side rails up X2. 09:00 No provider procedures requiring assistance completed. rs5 09:04 Triage completed. iw 09:06 Arm band placed on. iw 09:11 Donnie Galdamez, CHERRY is Primary Nurse. rs5 09:31 CT Head Brain wo Cont In Process Unspecified. EDMS 09:48 Provided Education on: discharge instructions . rs5 09:50 Patient did not have IV access during this emergency room visit. rs5 Administered Medications: 09:21 Drug: MetoCLOPramide PO 10 mg PO once Route: PO; rs5 09:50 Follow up: Response: No adverse reaction; Nausea is decreased rs5 Medication: 09:35 VIS not applicable for this client. rs5 Outcome: :44 Discharge ordered by . ec2 09:50 Discharged to home via wheelchair, with family, rs5 09:50 Condition: stable rs5 09:50 Discharge instructions given to patient, family, Instructed on discharge instructions, follow up and referral plans. medication usage, Demonstrated understanding of instructions, follow-up care, medications, Prescriptions given X 1, :52 Patient left the ED. rs5 Signatures: Dispatcher [employer] EDCorrina Huff RN RN iw Donnie Galdamez RN RN rs5 Saman Whiting MD MD ec2 Adrienne Cheatham ra3 Corrections: (The following items were deleted from the chart) 10:09 10:08 BP 133 / 84; Resp 17bpm; Pulse Ox 99% RA; rs5 rs5
--- NOTE | 2024-07-29 09:45 | EDPHYS ---
Physician Documentation [facility] Name: Cade Perez Age: 69 yrs Sex: Female : 1955 Arrival Date: 07/29/2024 Time: 08:51 Bed 16 Private MD: ED Physician Saman Whiting HPI: 07/29 08:54 This 69 yrs old Female presents to ER via Unassigned with complaints of Multiple ec2 falls:LOC. 09:08 Patient arrives today for evaluation of a headache as well as dizziness after recent ec2 fall. Reports that she had a fall and struck her head, positive LOC, no blood thinners. Has been having some bouts of dizziness after the fall. Also complaining of headaches as well.. Historical: - Allergies: 09:04 No Known Allergies; iw - Home Meds: 09:04 atorvastatin 20 mg Oral tablet [Active]; losartan 100 mg Oral tablet [Active]; iw simvastatin 20 mg Oral tablet [Active]; omeprazole 40 mg Oral capsule [Active]; - PMHx: 09:04 Hypertensive disorder; Hypercholesterolemia; Chronic back pain; iw - PSHx: 09:04 right hip; back; iw - Immunization history:: Adult Immunizations up to date. - Infectious Disease History:: Denies. - Social history:: Smoking status: Patient denies any tobacco usage or history of. ROS: 09:08 Constitutional: as per hpi ec2 Exam: 09:08 Constitutional: GEN: NAD Head: atraumatic Eyes: EOMI Ears: External ears are ec2 normal. CV: regular rate LUNGS: no respiratory distress ABD: non-distended SKIN: no evidence of rashes MSK: no evidence of trauma. Neuro: Cranial nerves II through XII intact, strength intact all 4 extremities, no pronator drift Vital Signs: 09:02 BP 139 / 89; Pulse 75; Resp 16; Temp 98.4; Pulse Ox 97% on R/A; Weight 66.22 kg; Height iw 5 ft. 2 in. ; 09:45 BP 133 / 84; Resp 17; Pulse Ox 99% on R/A; rs5 09:02 Body Mass Index 26.70 (66.22 kg, 157.48 cm) iw MDM: 08:57 Medical Screening Exam initiated ec2 09:08 Data reviewed: vital signs, nurses notes. ED course: Patient arrives today for ec2 evaluation of headache and dizziness after recent fall. Examination yields intact neurologic examination. Differential diagnosis includes vertigo, concussion symptoms, intracranial brain bleed. Doubt arrhythmia given association after the fall, doubt anemia or electrolyte disturbances as well. Accordingly we will forego lab work such as CBC or BMP.. 09:43 ED course: CT scan of the head shows no acute intracranial abnormality. Suspect ec2 concussive symptoms given the patient's relation with the fall and dizziness after. 07/29 09:08 Order name: CT Head Brain wo Cont; Complete Time: 09:43 ec2 Administered Medications: 09:21 Drug: MetoCLOPramide PO 10 mg PO once Route: PO; rs5 09:50 Follow up: Response: No adverse reaction; Nausea is decreased rs5 Disposition Summary: 07/29/24 09:44 Discharge Ordered Notes: Location: Home ec2 Condition: Stable ec2 Diagnosis - Postconcussional syndrome ec2 Followup: ec2 - With: Private Physician - When: - Reason: Re-evaluation by your physician Discharge Instructions: - Discharge Summary Sheet ec2 - Post-Concussion Syndrome, [id number] ec2 Forms: - Medication Reconciliation Form ec2 - Antibiotic Education ec2 - Prescription Opioid Use ec2 - Patient Portal Instructions ec2 - Leadership Thank You Letter ec2 Prescriptions: - Compazine 10 mg Oral Tablet - take 1 tablet ORAL route every 8 hours As needed; 20 tablet; Refills: 0, ec2 Product Selection Permitted Signatures: Dispatcher [employer] Corrina Haque RN RN Donnie Galdamez RN RN rs5 Saman Whiting MD MD ec2
[2024-07-29 09:56] VITALS: BP 139/89; TEMP 98.4; O2SAT 97
== END 2024-07-29 09:52 | disposition home or self-care (01) ==
LOC: ER 08:51
DX: R51.9 Headache, unspecified (principal); F07.81 Postconcussional syndrome; R42 Dizziness and giddiness; W19.XXXA Unspecified fall, initial encounter
CPT/HCPCS: 70450; 99283